=== PATIENT | male | born 1980 | race African-American/Black ===

== ENCOUNTER 2017-03-16 06:45 | Emergency (ER) | payer MEDICAID ==
[~2017-03-16] VITALS: Ht 180.3 cm; Wt 98.4 kg
[~2017-03-16 06:45] MED LIST: ALBU18; FLUT110A; HYDROCODON ACETAMINOPH; LEVO50TA7; PROMETHAZINE-DM SYRUP; WARF5TAB71; WARF7.5T PO
[2017-03-16 07:13] VITALS: BP 149/90
[2017-03-16] MEDS ORDERED: HYDROmorphone HCL 2 MG/ML VL IM ONE (07:30)
[2017-03-16] MEDS ORDERED: cefTRIAXone SOD 1,000 MG VL IM ONE (07:30)
[2017-03-16] MEDS ORDERED: ONDANSETRON HCL 4 MG/2 ML VIAL IM ONE (07:30)
[2017-03-16] MEDS ORDERED: ETHYL CHLORIDE SPRAY TOP ONE (08:45)
[2017-03-16] MEDS ORDERED: LIDOCAINE 1% HCL (LOCAL ANESTH.) INJ 20ML MDV IJ ONE (08:45)
== END 2017-03-16 08:55 | disposition home or self-care (01) ==
LOC: ER 06:45
DX: N49.2 Inflammatory disorders of scrotum (principal); F17.210 Nicotine dependence, cigarettes, uncomplicated; F12.10 Cannabis abuse, uncomplicated; I25.810 Atherosclerosis of coronary artery bypass graft(s) without angina pectoris; I50.9 Heart failure, unspecified; Z79.899 Other long term (current) drug therapy
CPT/HCPCS: 55100; 96372; 99284; J0696; J1170; J2405

== ENCOUNTER 2017-03-18 08:59 | Emergency (ER) | payer MEDICAID ==
[~2017-03-18] VITALS: Ht 180.3 cm; Wt 98.4 kg
[2017-03-18 09:33] VITALS: BP 152/92
== END 2017-03-18 10:11 | disposition home or self-care (01) ==
LOC: ER 09:05
DX: N49.2 Inflammatory disorders of scrotum (principal); F17.210 Nicotine dependence, cigarettes, uncomplicated; F12.10 Cannabis abuse, uncomplicated; I50.9 Heart failure, unspecified; I25.810 Atherosclerosis of coronary artery bypass graft(s) without angina pectoris

== ENCOUNTER 2019-10-28 11:14 | Emergency (ER) | payer MEDICAID ==
[~2019-10-28] VITALS: Ht 180.3 cm; Wt 101.2 kg
[~2019-10-28 11:14] MED LIST changes: +HYDR-4833 PO; -HYDROCODON ACETAMINOPH; -LEVO50TA7; +LEVO50TA7 PO; -PROMETHAZINE-DM SYRUP; -WARF5TAB71
[2019-10-28 11:34] VITALS: BP 149/95
[2019-10-28] MEDS ORDERED: methylPREDNISolone SOD SUCC 125 MG/2 ML VL IM ONE (12:15)
[2019-10-28] MEDS ORDERED: cefTRIAXone SOD 1,000 MG VL IM ONE (12:15)
== END 2019-10-28 12:49 | disposition home or self-care (01) ==
LOC: ER 11:14
DX: J03.90 Acute tonsillitis, unspecified (principal); I11.0 Hypertensive heart disease with heart failure; I50.9 Heart failure, unspecified; Z95.1 Presence of aortocoronary bypass graft; Z79.01 Long term (current) use of anticoagulants; Z79.899 Other long term (current) drug therapy
CPT/HCPCS: 96372; 99283; J0696; J2930

== ENCOUNTER 2021-06-20 22:07 | Emergency (ER) | payer MEDICAID ==
[~2021-06-20] VITALS: Ht 180.3 cm; Wt 104.3 kg
[~2021-06-20 22:07] MED LIST changes: -WARF7.5T PO; +WARF7.5T2 PO
[2021-06-21 01:47] VITALS: BP 124/79
== END 2021-06-21 05:02 | disposition home or self-care (01) ==
LOC: ER 22:10
DX: I83.221 Varicose veins of left lower extremity with both ulcer of thigh and inflammation (principal); L97.121 Non-pressure chronic ulcer of left thigh limited to breakdown of skin; I83.013 Varicose veins of right lower extremity with ulcer of ankle; L97.311 Non-pressure chronic ulcer of right ankle limited to breakdown of skin; I11.0 Hypertensive heart disease with heart failure; I50.9 Heart failure, unspecified; Z86.73 Personal history of transient ischemic attack (TIA), and cerebral infarction without residual deficits; Z95.1 Presence of aortocoronary bypass graft; Z79.01 Long term (current) use of anticoagulants; Z79.899 Other long term (current) drug therapy
CPT/HCPCS: 93005

== ENCOUNTER 2021-11-01 19:39 | Inpatient (IN) | payer MEDICAID ==
[~2021-11-01] VITALS: Ht 180.3 cm; Wt 112.0 kg
[2021-11-01] MEDS ORDERED: ACETAMINOPHEN 325 MG TAB PO ONE ×2 (20:00→22:30)
[2021-11-01] MEDS ORDERED: DexAMETHasone SOD PHOS 10MG/1ML VIAL INJ IV ONE (22:30)
[2021-11-01 22:32] LABS: Basophils # (auto) 0 10 ^3/uL (0-0.2); Eosinophils # (auto) 0 10 ^3/uL (0-0.8); Mean Corpuscular Hgb Conc. 32.3 g/dL (32.0-36.0); Neutrophils # (auto) 3.1 10 ^3/uL (1.6-8.6); Red Cell Distribution Width 17.1 % (11.8-14.3)
[2021-11-01 22:34] LABS: Basophils % (auto) 0.6 % (0.0-2.0); Lymphocytes # (auto) 0.4 10 ^3/uL (0.4-5.4); Lymphocytes % (auto) 10.5 % (10.0-50.0); Mean Corpuscular Hemoglobin 26.4 pg (28.0-32.0); Mean Corpuscular Volume 81.7 fL (80.0-100.0); Monocytes # (auto) 0.6 10 ^3/uL (0-1.3); Monocytes % (auto) 15.2 % (0.0-12.0); Neutrophils % (auto) 73.7 % (37.0-80.0); Red Blood Cells 8.03 10^6/uL (4.5-5.90); White Blood Cell 4.2 10^3/uL (4.4-10.8)
[2021-11-01 22:38] LABS: Hematocrit 65.6 % (41.0-53.0); Nucleated Red Blood Cells % 4.1 %
[2021-11-01 22:41] LABS: Hemoglobin 21.2 g/dL (13.5-17.5)
[2021-11-01 23:24] LABS: Alanine Aminotransferase 76 U/L (16-61); Albumin 3.1 g/dL (3.4-5.0); Alkaline Phosphatase 64 U/L (45-117); Anion Gap 9 (5-15); Aspartate Aminotransferase 151 U/L (15-37); BUN/Creatinine Ratio 16.8; Bilirubin, Total 1.6 mg/dL (0.2-1.0); Blood Urea Nitrogen 33 mg/dL (7-18); Calcium 8.3 mg/dL (8.5-10.1); Carbon Dioxide 21 mmol/L (21-32); Chloride 105 mmol/L (98-107); GFR African American 48 mL/min; GFR Non-African American 40 mL/min; Glucose 119 mg/dL (74-106); Magnesium 2.3 mg/dL (1.6-2.6); Potassium 4.7 mmol/L (3.5-5.1); Sodium 135 mmol/L (136-145); Total Protein 8.6 g/dL (6.4-8.2)
[2021-11-02] MEDS ORDERED: VANCOMYCIN 1,500 MG in D5W 5% 250 ML IV STA (02:02)
[2021-11-02] MEDS ORDERED: PIPERACILLIN-TAZO 4.5GM 100 ML IV ONE (02:15)
[2021-11-02] MEDS ORDERED: SODIUM CHLORIDE 0.9% 3,250 ML IV ONE (04:30)
[2021-11-02] MEDS ORDERED: SODIUM CHLORIDE 0.9% 1,000 ML IV ONE ×3 (04:30→06:45)
[2021-11-02] MEDS ORDERED: ACETAMINOPHEN 325 MG TAB PO PRN (06:30)
[2021-11-02] MEDS ORDERED: DOCUSATE SOD 100 MG CAP PO PRN (06:30)
[2021-11-02] MEDS ORDERED: MORPHINE SULFATE INJECTION 2 MG/ML SYRG IV PRN (06:30)
[2021-11-02] MEDS ORDERED: VANCOMYCIN PER PHARMACY 0 MG IV SCH (06:30)
[2021-11-02] MEDS ORDERED: ALBUMIN 25% 100 ML IV ONE (06:30)
[2021-11-02] MEDS ORDERED: ONDANSETRON HCL 4 MG/2 ML VIAL IV PRN (06:30)
[2021-11-02] MEDS ORDERED: NITROGLYCERIN 0.4 MG SL TAB SL PRN (06:30)
[2021-11-02] MEDS ORDERED: NOREPINEPHRINE 8 MG/250ML KIT 250 ML IV SCH (08:30)
[2021-11-02 08:43] LABS: Basophils # (auto) 0 10 ^3/uL (0-0.2); Eosinophils # (auto) 0 10 ^3/uL (0-0.8); Lymphocytes # (auto) 0.4 10 ^3/uL (0.4-5.4); Neutrophils # (auto) 2.4 10 ^3/uL (1.6-8.6); White Blood Cell 3.1 10^3/uL (4.4-10.8)
[2021-11-02 08:45] LABS: Basophils % (auto) 0.7 % (0.0-2.0); Hemoglobin 19.7 g/dL (13.5-17.5); Lymphocytes % (auto) 12.5 % (10.0-50.0); Mean Corpuscular Hemoglobin 26.1 pg (28.0-32.0); Mean Corpuscular Hgb Conc. 31.6 g/dL (32.0-36.0); Mean Corpuscular Volume 82.5 fL (80.0-100.0); Monocytes # (auto) 0.3 10 ^3/uL (0-1.3); Monocytes % (auto) 8.2 % (0.0-12.0); Neutrophils % (auto) 78.6 % (37.0-80.0); Nucleated Red Blood Cells % 1.7 %; Red Blood Cells 7.55 10^6/uL (4.5-5.90)
[2021-11-02 08:50] LABS: Albumin 2.4 g/dL (3.4-5.0); Calcium 7.2 mg/dL (8.5-10.1); Potassium 4.8 mmol/L (3.5-5.1)
[2021-11-02 08:53] LABS: BUN/Creatinine Ratio 19.4; Bilirubin, Total 1.9 mg/dL (0.2-1.0); Total Protein 6.9 g/dL (6.4-8.2)
[2021-11-02] MEDS: LEVOTHYROXINE SODIUM 50 MCG TAB PO SCH (09:01)
[2021-11-02 09:06] LABS: Hematocrit 62.4 % (41.0-53.0)
[2021-11-02] MEDS: SODIUM CHLORIDE 0.9% 1,000 ML IV SCH (09:19)
[2021-11-02] MEDS: FAMOTIDINE (10MG/ML) 2ML VL IV SCH ×2 (10:07→22:03)
[2021-11-02 11:33] LABS: Alcohol, Urine < 3.0 mg/dL (0-10); Amphetamine Screen, Urine NEGATIVE (NEGATIVE); Barbiturate Scree,Urine NEGATIVE (NEGATIVE); Benzodiazephine Screen, Urine NEGATIVE (NEGATIVE); Cannabinoid Screen, Urine POSITIVE (NEGATIVE); Cocaine Screen, Urine NEGATIVE (NEGATIVE); Opiate Scree,Urine NEGATIVE (NEGATIVE); Phencyclidine Screen, Urine NEGATIVE (NEGATIVE)
[2021-11-02 11:57] LABS: Urine Bacteria FEW /hpf (None Seen); Urine Blood Negative /uL (Negative); Urine Hyaline Cast MOD /lpf (0 - 2); Urine Mucus FEW (None Seen); Urine Specific Gravity 1.023 (1.001-1.035); Urine WBC 3 /hpf (0 - 3)
[2021-11-02] MEDS: PIPERACILLIN-TAZOB 3.375GM 100 ML IV SCH ×2 (14:00→23:06)
[2021-11-02] MEDS ORDERED: PIPERACILLIN-TAZOB 2.25GM 50 ML IV SCH (14:00)
[2021-11-02] MEDS ORDERED: VANCOMYCIN 1GM/250ML 250 ML IV ONE (17:30)
[2021-11-02 19:26] LABS: INR 1.63 (0.9-1.15); Partial Thromboplastin Time 36.8 sec (23.6-33.0)
[2021-11-02] MEDS ORDERED: WARFARIN SODIUM 2.5 MG TAB PO ONE (20:00)
[2021-11-02] MEDS: BUDESONIDE (INHALATION) 180 MCG IH IN SCH (22:00)
[2021-11-02 22:23] VITALS: BP 94/67
[2021-11-02] MEDS: HYDROcodone-ACET 5/325MG TAB PO PRN (22:23)
[2021-11-03] MEDS: SODIUM CHLORIDE 0.9% 1,000 ML IV SCH (03:32)
[2021-11-03 04:53] VITALS: BP 111/71
[2021-11-03] MEDS: PIPERACILLIN-TAZOB 3.375GM 100 ML IV SCH (05:43)
[2021-11-03] MEDS: LEVOTHYROXINE SODIUM 50 MCG TAB PO SCH (06:34)
[2021-11-03 08:15] LABS: Potassium 5.1 mmol/L (3.5-5.1)
[2021-11-03 08:21] LABS: Basophils # (auto) 0 10 ^3/uL (0-0.2); Eosinophils # (auto) 0 10 ^3/uL (0-0.8); Hemoglobin 19.6 g/dL (13.5-17.5); Monocytes # (auto) 0.4 10 ^3/uL (0-1.3); White Blood Cell 3.6 10^3/uL (4.4-10.8)
[2021-11-03 08:23] LABS: Basophils % (auto) 0.5 % (0.0-2.0); Hematocrit 62.1 % (41.0-53.0); Lymphocytes # (auto) 0.6 10 ^3/uL (0.4-5.4); Lymphocytes % (auto) 17.1 % (10.0-50.0); Mean Corpuscular Hemoglobin 26.2 pg (28.0-32.0); Mean Corpuscular Hgb Conc. 31.5 g/dL (32.0-36.0); Mean Corpuscular Volume 83.2 fL (80.0-100.0); Monocytes % (auto) 10.8 % (0.0-12.0); Neutrophils # (auto) 2.5 10 ^3/uL (1.6-8.6); Neutrophils % (auto) 71.6 % (37.0-80.0); Nucleated Red Blood Cells % 1.5 %; Red Blood Cells 7.47 10^6/uL (4.5-5.90); Red Cell Distribution Width 17.5 % (11.8-14.3)
[2021-11-03 08:31] LABS: Albumin 2.8 g/dL (3.4-5.0); BUN/Creatinine Ratio 20.7; Bilirubin, Total 1.4 mg/dL (0.2-1.0); Calcium 7.7 mg/dL (8.5-10.1); Total Protein 7.1 g/dL (6.4-8.2)
[2021-11-03 08:49] LABS: INR 1.51 (0.9-1.15); Partial Thromboplastin Time 38.3 sec (23.6-33.0)
[2021-11-03 09:00] VITALS: BP 89/68
[2021-11-03] MEDS: BUDESONIDE (INHALATION) 180 MCG IH IN SCH ×2 (09:42→22:00)
[2021-11-03] MEDS: CHOLECALCIFEROL (VITD3) 2,000 UNIT CAP/TAB PO SCH (10:00)
[2021-11-03] MEDS: ZINC SULFATE 220mg CAP or TAB PO SCH (11:13)
[2021-11-03] MEDS: FAMOTIDINE (10MG/ML) 2ML VL IV SCH (11:13)
[2021-11-03] MEDS: ASCORBIC ACID 1,000 MG TAB PO SCH (11:14)
[2021-11-03] MEDS ORDERED: REMDESIVIR PER PHARMACY 0 ML IV SCH (12:15)
[2021-11-03] MEDS ORDERED: DexAMETHasone SOD PHOS 4 MG/1ML SDV INJ IV ONE (12:15)
[2021-11-03] MEDS: DOXYCYCLINE 100MG/250ML 250 ML IV SCH ×2 (12:23→22:43)
[2021-11-03 13:00] VITALS: BP 90/64
[2021-11-03] MEDS ORDERED: MEROPENEM 1GM IVPB 100 ML IV SCH (14:00)
[2021-11-03] MEDS ORDERED: REMDESIVIR 200 MG in NS 210ml LOADING DOSE ADULT IV ONE (15:00)
[2021-11-03 17:00] VITALS: BP 95/42
[2021-11-03] MEDS ORDERED: WARFARIN SODIUM 10 MG TAB PO ONE (17:00)
[2021-11-03 22:00] VITALS: BP 96/67
[2021-11-03] MEDS: ALBUTEROL SULF HFA 90MCG INH 200DOSE IN PRN (23:25)
[2021-11-04] MEDS: ACETAMINOPHEN 500 MG TAB PO PRN ×2 (01:07→16:50)
[2021-11-04 05:00] VITALS: BP 105/41
[2021-11-04] MEDS: LEVOTHYROXINE SODIUM 50 MCG TAB PO SCH (06:42)
[2021-11-04 07:21] LABS: Basophils # (auto) 0 10 ^3/uL (0-0.2); Basophils % (auto) 0.2 % (0.0-2.0); Eosinophils # (auto) 0 10 ^3/uL (0-0.8); Mean Corpuscular Volume 82.4 fL (80.0-100.0); White Blood Cell 4.2 10^3/uL (4.4-10.8)
[2021-11-04 07:23] LABS: Lymphocytes # (auto) 0.5 10 ^3/uL (0.4-5.4); Lymphocytes % (auto) 12.9 % (10.0-50.0); Mean Corpuscular Hemoglobin 26.4 pg (28.0-32.0); Mean Corpuscular Hgb Conc. 32.1 g/dL (32.0-36.0); Monocytes # (auto) 0.6 10 ^3/uL (0-1.3); Monocytes % (auto) 13.5 % (0.0-12.0); Neutrophils # (auto) 3.1 10 ^3/uL (1.6-8.6); Neutrophils % (auto) 73.4 % (37.0-80.0); Nucleated Red Blood Cells % 0.7 %; Red Blood Cells 7.56 10^6/uL (4.5-5.90); Red Cell Distribution Width 17.4 % (11.8-14.3)
[2021-11-04 07:39] LABS: Hematocrit 62.3 % (41.0-53.0)
[2021-11-04 08:12] LABS: BUN/Creatinine Ratio 16.5; Calcium 8.2 mg/dL (8.5-10.1); Potassium 4.6 mmol/L (3.5-5.1)
[2021-11-04 08:13] LABS: Albumin 2.7 g/dL (3.4-5.0); Bilirubin, Total 1.8 mg/dL (0.2-1.0); Total Protein 7.4 g/dL (6.4-8.2)
[2021-11-04 08:15] LABS: INR 4.52 (0.9-1.15)
[2021-11-04] MEDS: ASCORBIC ACID 1,000 MG TAB PO SCH (08:33)
[2021-11-04] MEDS: DexAMETHasone SOD PHOS 10MG/1ML VIAL INJ IV SCH (08:33)
[2021-11-04] MEDS: ZINC SULFATE 220mg CAP or TAB PO SCH (08:33)
[2021-11-04] MEDS: DOXYCYCLINE 100MG/250ML 250 ML IV SCH ×2 (08:34→22:30)
[2021-11-04] MEDS: CHOLECALCIFEROL (VITD3) 2,000 UNIT CAP/TAB PO SCH (08:34)
[2021-11-04 09:00] VITALS: BP 94/67
[2021-11-04 13:00] VITALS: BP 90/60
[2021-11-04] MEDS ORDERED: REMDESIVIR 200 MG in NS 210ml LOADING DOSE ADULT IV ONE (15:00)
[2021-11-04 17:00] VITALS: BP 102/35
[2021-11-04 22:00] VITALS: BP 94/65
[2021-11-04] MEDS: BUDESONIDE (INHALATION) 180 MCG IH IN SCH (23:10)
[2021-11-04] MEDS: ALBUTEROL SULF HFA 90MCG INH 200DOSE IN PRN (23:37)
[2021-11-05 05:00] VITALS: BP 99/70
[2021-11-05] MEDS: LEVOTHYROXINE SODIUM 50 MCG TAB PO SCH (06:21)
[2021-11-05] MEDS: BUDESONIDE (INHALATION) 180 MCG IH IN SCH ×2 (07:10→20:06)
[2021-11-05 08:12] LABS: INR 4.52 (0.9-1.15)
[2021-11-05] MEDS: ALBUTEROL SULF HFA 90MCG INH 200DOSE IN PRN ×2 (08:44→20:06)
[2021-11-05 08:57] VITALS: BP 108/62
[2021-11-05] MEDS: ZINC SULFATE 220mg CAP or TAB PO SCH (09:04)
[2021-11-05] MEDS: ASCORBIC ACID 1,000 MG TAB PO SCH (09:04)
[2021-11-05] MEDS: CHOLECALCIFEROL (VITD3) 2,000 UNIT CAP/TAB PO SCH (09:04)
[2021-11-05] MEDS: DexAMETHasone SOD PHOS 10MG/1ML VIAL INJ IV SCH (09:04)
[2021-11-05] MEDS: DOXYCYCLINE 100MG/250ML 250 ML IV SCH (09:04)
[2021-11-05] MEDS: ACETAMINOPHEN 500 MG TAB PO PRN (09:21)
[2021-11-05 09:25] LABS: Potassium 4.6 mmol/L (3.5-5.1)
[2021-11-05 09:26] LABS: Albumin 2.8 g/dL (3.4-5.0); BUN/Creatinine Ratio 17.8; Bilirubin, Total 2.4 mg/dL (0.2-1.0); Calcium 8.7 mg/dL (8.5-10.1); Total Protein 7.8 g/dL (6.4-8.2)
[2021-11-05 12:58] VITALS: BP 84/64
[2021-11-05] MEDS: REMDESIVIR 100mg 100 MG in SODIUM CHL 0.9% 230 ML IV SCH (14:26)
[2021-11-05 17:00] VITALS: BP 93/55
[2021-11-05 22:00] VITALS: BP 90/50
[2021-11-06 05:00] VITALS: BP 99/60
[2021-11-06] MEDS: ALBUTEROL SULF HFA 90MCG INH 200DOSE IN PRN (06:02)
[2021-11-06] MEDS: BUDESONIDE (INHALATION) 180 MCG IH IN SCH (06:02)
[2021-11-06] MEDS: LEVOTHYROXINE SODIUM 50 MCG TAB PO SCH (06:37)
[2021-11-06 08:23] LABS: INR 5.09 (0.9-1.15)
[2021-11-06 09:00] VITALS: BP 130/94
[2021-11-06] MEDS: DexAMETHasone SOD PHOS 10MG/1ML VIAL INJ IV SCH (09:16)
[2021-11-06] MEDS: cefTRIAXone 1GM/50ML D5W 50 ML IV SCH (09:16)
[2021-11-06] MEDS: ASCORBIC ACID 1,000 MG TAB PO SCH (09:17)
[2021-11-06] MEDS: ZINC SULFATE 220mg CAP or TAB PO SCH (09:17)
[2021-11-06] MEDS: CHOLECALCIFEROL (VITD3) 2,000 UNIT CAP/TAB PO SCH (09:17)
[2021-11-06 13:00] VITALS: BP 112/73
[2021-11-06] MEDS: HYDROcodone-ACET 5/325MG TAB PO PRN (14:25)
[2021-11-06] MEDS: REMDESIVIR 100mg 100 MG in SODIUM CHL 0.9% 230 ML IV SCH (15:00)
[2021-11-06 17:01] VITALS: BP 96/73
[2021-11-06 17:15] LABS: Basophils # (auto) 0 10 ^3/uL (0-0.2); Basophils % (auto) 0.3 % (0.0-2.0); Eosinophils # (auto) 0 10 ^3/uL (0-0.8); Eosinophils % (auto) 0.1 % (0.0-7.0); Hemoglobin 19.6 g/dL (13.5-17.5); Lymphocytes # (auto) 0.2 10 ^3/uL (0.4-5.4); Lymphocytes % (auto) 3.7 % (10.0-50.0); Mean Corpuscular Hemoglobin 26.7 pg (28.0-32.0); Mean Corpuscular Hgb Conc. 32.6 g/dL (32.0-36.0); Mean Corpuscular Volume 81.8 fL (80.0-100.0); Monocytes # (auto) 0.4 10 ^3/uL (0-1.3); Monocytes % (auto) 7.8 % (0.0-12.0); Neutrophils % (auto) 88.1 % (37.0-80.0); Nucleated Red Blood Cells % 0.4 %; Red Blood Cells 7.33 10^6/uL (4.5-5.90); Red Cell Distribution Width 17.3 % (11.8-14.3); White Blood Cell 5.7 10^3/uL (4.4-10.8)
[2021-11-06 17:27] LABS: Hematocrit 59.9 % (41.0-53.0)
[2021-11-06 22:00] VITALS: BP 88/64
[2021-11-07 01:02] LABS: Albumin 2.5 g/dL (3.4-5.0); BUN/Creatinine Ratio 16.7; Calcium 8.8 mg/dL (8.5-10.1); Potassium 4.6 mmol/L (3.5-5.1)
[2021-11-07 01:23] LABS: Total Protein 7.7 g/dL (6.4-8.2)
[2021-11-07 04:59] VITALS: BP 94/67
[2021-11-07] MEDS: LEVOTHYROXINE SODIUM 50 MCG TAB PO SCH (06:21)
[2021-11-07 06:40] LABS: Calcium 8.7 mg/dL (8.5-10.1); Potassium 4.7 mmol/L (3.5-5.1)
[2021-11-07 06:41] LABS: INR 2.78 (0.9-1.15)
[2021-11-07 06:43] LABS: Albumin 2.4 g/dL (3.4-5.0); BUN/Creatinine Ratio 21.8
[2021-11-07 06:46] LABS: Bilirubin, Total 2.5 mg/dL (0.2-1.0); Total Protein 6.7 g/dL (6.4-8.2)
[2021-11-07 09:00] VITALS: BP 94/58
[2021-11-07] MEDS: cefTRIAXone 1GM/50ML D5W 50 ML IV SCH (09:34)
[2021-11-07] MEDS: CHOLECALCIFEROL (VITD3) 2,000 UNIT CAP/TAB PO SCH (09:35)
[2021-11-07] MEDS: ZINC SULFATE 220mg CAP or TAB PO SCH (09:35)
[2021-11-07] MEDS: ASCORBIC ACID 1,000 MG TAB PO SCH (09:35)
[2021-11-07] MEDS: DexAMETHasone SOD PHOS 10MG/1ML VIAL INJ IV SCH (09:35)
[2021-11-07] MEDS: BUDESONIDE (INHALATION) 180 MCG IH IN SCH (10:00)
[2021-11-07] MEDS: ALBUTEROL SULF HFA 90MCG INH 200DOSE IN PRN (11:07)
[2021-11-07 13:00] VITALS: BP 116/59
[2021-11-07] MEDS ORDERED: WARFARIN SODIUM 2.5 MG TAB PO ONE (17:00)
== END 2021-11-07 17:20 | disposition home or self-care (01) | DRG 720 ==
LOC: ER 19:41 → TELE 11-02 06:24 → TELE-EAST 11-02 20:24
PROVIDERS: ADMIT Nurse Practitioner Family; ATTEND Internal Medicine
PROC: XW033E5 Introduction of Remdesivir Anti-infective into Peripheral Vein, Percutaneous Approach, New Technology Group 5 (ICD-10-PCS; principal; 2021-11-03)
DX: A41.89 Other specified sepsis (principal); J96.21 Acute and chronic respiratory failure with hypoxia; J12.82 Pneumonia due to coronavirus disease 2019; E46 Unspecified protein-calorie malnutrition; U07.1 COVID-19; D69.6 Thrombocytopenia, unspecified; D89.839 Cytokine release syndrome, grade unspecified; I21.A1 Myocardial infarction type 2; E83.51 Hypocalcemia; D75.1 Secondary polycythemia; K74.60 Unspecified cirrhosis of liver; I50.9 Heart failure, unspecified; I11.0 Hypertensive heart disease with heart failure; E03.9 Hypothyroidism, unspecified; J98.11 Atelectasis; E66.9 Obesity, unspecified; D69.59 Other secondary thrombocytopenia; Z99.81 Dependence on supplemental oxygen; Z68.34 Body mass index [BMI] 34.0-34.9, adult; Z91.19 Patient's noncompliance with other medical treatment and regimen; Z95.2 Presence of prosthetic heart valve
CPT/HCPCS: 36415; 71045; 71250; 76700; 80053; 80202; 80307; 80320; 81001; 82728; 83036; 83605; 83615; 83735; 83880; 84443; 84484; 85025; 85379; 85610; 85730; 87040; 87426; 93005; 93306; 94640; 96361; 96365; 96375; 99291; G0378; J0696; J1100; J2185; J2543; J3490; J7060; P9047

== ENCOUNTER 2023-04-06 19:18 | Inpatient (IN) | payer MEDICAID ==
[~2023-04-06] VITALS: Ht 180.3 cm; Wt 106.1 kg
[2023-04-06 20:38] LABS: INR 1.28 (0.9-1.15); Partial Thromboplastin Time 30.2 sec (24.6-33.4)
[2023-04-06 20:42] LABS: Albumin 3.8 g/dL (3.4-5.0); Calcium 8.8 mg/dL (8.5-10.1); Magnesium 2.2 mg/dL (1.6-2.6); Potassium 4.4 mmol/L (3.5-5.1)
[2023-04-06 20:47] LABS: BUN/Creatinine Ratio 15.6 (10.0-20.0); Bilirubin, Total 3.6 mg/dL (0.2-1.0); Total Protein 8.3 g/dL (6.4-8.2)
[2023-04-06] MEDS ORDERED: ASPirin 325 MG TAB PO ONE (21:00)
[2023-04-06 21:53] LABS: Hemoglobin 15.5 g/dL (13.5-17.5); Mean Corpuscular Volume 67.7 fL (80.0-100.0); White Blood Cell 4.1 10^3/uL (4.4-10.8)
[2023-04-06 21:55] LABS: Hematocrit 53.3 % (41.0-53.0); Mean Corpuscular Hemoglobin 19.7 pg (28.0-32.0); Mean Corpuscular Hgb Conc. 29.1 g/dL (32.0-36.0); Red Blood Cells 7.88 10^6/uL (4.5-5.90)
[2023-04-06 22:04] LABS: Red Cell Distribution Width 25.2 % (11.8-14.3)
[2023-04-06 22:07] LABS: Basophils % (manual) 0 (0.0-2.0); Blast Cells 0; Metamyelocytes % 0; Myelocytes % 0; Promyelocytes % 0; Reactive Lymphocytes 0
[2023-04-06 22:51] LABS: Band Neutrophils % (manual) 3; Eosinophils % (manual) 1 (0-7); Lymphocytes % (manual) 36 (10.0-50.0); Monocytes % (manual) 7 (0-12)
[2023-04-07] MEDS ORDERED: MORPHINE SULFATE INJ 2 MG/ml SYRG IV PRN (02:30)
[2023-04-07] MEDS ORDERED: ALBUTEROL SULF 2.5 MG/0.5ML(0.5%) NEB SOLN NEB PRN (02:30)
[2023-04-07] MEDS ORDERED: NITROGLYCERIN 0.4 MG SL TAB SL PRN (02:30)
[2023-04-07] MEDS ORDERED: ONDANSETRON HCL 4 MG/2 ML VIAL IV PRN (02:30)
[2023-04-07] MEDS: HYDROcodone-ACET 5/325MG TAB PO PRN ×3 (03:18→14:15)
[2023-04-07] MEDS: LEVOTHYROXINE SODIUM 50 MCG TAB PO SCH (06:26)
[2023-04-07 06:46] VITALS: BP 109/73
[2023-04-07] MEDS: PANTOPRAZOLE 40 MG TAB PO SCH (10:12)
[2023-04-07] MEDS: ASPirin 81 mg TAB PO SCH (10:12)
[2023-04-07] MEDS ORDERED: WARFARIN SODIUM 2.5 MG TAB PO ONE (17:00)
[2023-04-07 17:40] VITALS: BP 110/41
[2023-04-07 18:09] VITALS: BP_SYST 110; BP_DIAS 41; BP_DIAS 78
[2023-04-07 22:00] VITALS: BP 128/83
[2023-04-08] MEDS: ACETAMINOPHEN 325 MG TAB PO PRN ×2 (04:47→12:55)
[2023-04-08 05:00] VITALS: BP 121/85
[2023-04-08 05:52] LABS: Eosinophils # (auto) 0.1 10 ^3/uL (0-0.8); Mean Corpuscular Hgb Conc. 29.8 g/dL (32.0-36.0)
[2023-04-08 05:59] LABS: Basophils # (auto) 0.1 10 ^3/uL (0-0.2); Basophils % (auto) 2.1 % (0.0-2.0); Eosinophils % (auto) 2.3 % (0.0-7.0); Hematocrit 52.6 % (41.0-53.0); Hemoglobin 15.7 g/dL (13.5-17.5); Lymphocytes % (auto) 29.1 % (10.0-50.0); Mean Corpuscular Hemoglobin 20.1 pg (28.0-32.0); Mean Corpuscular Volume 67.4 fL (80.0-100.0); Monocytes # (auto) 0.5 10 ^3/uL (0-1.3); Monocytes % (auto) 13.6 % (0.0-12.0); Neutrophils # (auto) 1.8 10 ^3/uL (1.6-8.6); Neutrophils % (auto) 52.9 % (37.0-80.0); Nucleated Red Blood Cells % 0.7 %; White Blood Cell 3.3 10^3/uL (4.4-10.8)
[2023-04-08 06:02] LABS: INR 1.34 (0.9-1.15); Partial Thromboplastin Time 33.9 sec (24.6-33.4)
[2023-04-08 06:08] LABS: Red Cell Distribution Width 24.5 % (11.8-14.3)
[2023-04-08 06:16] LABS: Potassium 4.3 mmol/L (3.5-5.1)
[2023-04-08 06:24] LABS: Albumin 3.1 g/dL (3.4-5.0); BUN/Creatinine Ratio 13.4 (10.0-20.0); Bilirubin, Total 3.4 mg/dL (0.2-1.0); Calcium 8.5 mg/dL (8.5-10.1); Total Protein 7.9 g/dL (6.4-8.2)
[2023-04-08] MEDS: LEVOTHYROXINE SODIUM 50 MCG TAB PO SCH (06:32)
[2023-04-08 09:00] VITALS: BP 111/72
[2023-04-08] MEDS ORDERED: FUROSEMIDE 40 MG/4 ML VIAL IV ONE (10:45)
[2023-04-08] MEDS ORDERED: IOHEXOL 350 MG/ML 100ML IJ ONE (10:53)
[2023-04-08] MEDS: cefTRIAXone 1GM/50ML D5W 50 ML IV SCH (12:37)
[2023-04-08] MEDS: ASPirin 81 mg TAB PO SCH (12:40)
[2023-04-08] MEDS: PANTOPRAZOLE 40 MG TAB PO SCH (12:40)
[2023-04-08 13:00] VITALS: BP 116/76
[2023-04-08] MEDS: AZITHROMYCIN 500MG/ 250ML 250 ML IV SCH (13:40)
[2023-04-08] MEDS: HYDROcodone-ACET 5/325MG TAB PO PRN ×2 (15:00→21:35)
[2023-04-08 16:43] VITALS: BP 116/69
[2023-04-08] MEDS ORDERED: WARFARIN SODIUM 5 MG TAB PO ONE (17:00)
[2023-04-08] MEDS: guaiFENesin 200 MG/10 ML UD PO PRN (19:02)
[2023-04-08 22:00] VITALS: BP 115/75
[2023-04-09] MEDS: HYDROcodone-ACET 5/325MG TAB PO PRN ×3 (04:30→22:38)
[2023-04-09 05:00] VITALS: BP 119/70
[2023-04-09] MEDS: LEVOTHYROXINE SODIUM 50 MCG TAB PO SCH (06:05)
[2023-04-09 06:15] LABS: INR 1.43 (0.9-1.15); Partial Thromboplastin Time 35.1 SEC (24.5-34.5)
[2023-04-09 09:00] VITALS: BP 104/64
[2023-04-09] MEDS: cefTRIAXone 1GM/50ML D5W 50 ML IV SCH (09:18)
[2023-04-09] MEDS: PANTOPRAZOLE 40 MG TAB PO SCH (09:19)
[2023-04-09] MEDS: ASPirin 81 mg TAB PO SCH (09:19)
[2023-04-09] MEDS: AZITHROMYCIN 500MG/ 250ML 250 ML IV SCH (09:51)
[2023-04-09 13:00] VITALS: BP 121/78
[2023-04-09 17:00] VITALS: BP 109/64
[2023-04-09] MEDS ORDERED: WARFARIN SODIUM 5 MG TAB PO ONE (18:30)
[2023-04-09 22:00] VITALS: BP 117/78
[2023-04-09] MEDS: guaiFENesin 200 MG/10 ML UD PO PRN (22:38)
[2023-04-10 04:40] VITALS: BP 114/74
[2023-04-10] MEDS: LEVOTHYROXINE SODIUM 50 MCG TAB PO SCH (06:02)
[2023-04-10 06:22] LABS: INR 1.37 (0.9-1.15); Partial Thromboplastin Time 33.9 SEC (24.5-34.5)
[2023-04-10 09:00] VITALS: BP 109/66
[2023-04-10 09:27] VITALS: BP 114/74
[2023-04-10] MEDS: AZITHROMYCIN 250 MG TAB PO SCH (09:48)
[2023-04-10] MEDS: ASPirin 81 mg TAB PO SCH (09:49)
[2023-04-10] MEDS: cefTRIAXone 1GM/50ML D5W 50 ML IV SCH (09:49)
[2023-04-10] MEDS: PANTOPRAZOLE 40 MG TAB PO SCH (09:49)
[2023-04-10 13:00] VITALS: BP 132/85
[2023-04-10] MEDS: HYDROcodone-ACET 5/325MG TAB PO PRN ×2 (15:50→20:41)
[2023-04-10 17:00] VITALS: BP 110/74
[2023-04-10] MEDS ORDERED: WARFARIN SODIUM 5 MG TAB PO ONE (17:00)
[2023-04-10 22:00] VITALS: BP 124/73
[2023-04-11] MEDS: ACETAMINOPHEN 325 MG TAB PO PRN (03:48)
[2023-04-11 05:00] VITALS: BP 118/79
[2023-04-11 06:04] LABS: INR 1.32 (0.9-1.15); Partial Thromboplastin Time 33.6 SEC (24.5-34.5)
[2023-04-11] MEDS: LEVOTHYROXINE SODIUM 50 MCG TAB PO SCH (06:16)
[2023-04-11 09:00] VITALS: BP 117/74
[2023-04-11] MEDS: AZITHROMYCIN 250 MG TAB PO SCH (09:56)
[2023-04-11] MEDS: ASPirin 81 mg TAB PO SCH (09:56)
[2023-04-11] MEDS: cefTRIAXone 1GM/50ML D5W 50 ML IV SCH (09:56)
[2023-04-11] MEDS: PANTOPRAZOLE 40 MG TAB PO SCH (09:57)
[2023-04-11] MEDS: guaiFENesin 200 MG/10 ML UD PO PRN (10:09)
[2023-04-11] MEDS: HYDROcodone-ACET 5/325MG TAB PO PRN ×2 (10:49→23:02)
[2023-04-11 13:00] VITALS: BP 122/77
[2023-04-11 17:00] VITALS: BP 126/82
[2023-04-11] MEDS ORDERED: WARFARIN SODIUM 5 MG TAB PO ONE (17:00)
[2023-04-11 22:00] VITALS: BP 123/80
[2023-04-12 05:27] VITALS: BP 7/108
[2023-04-12] MEDS: LEVOTHYROXINE SODIUM 50 MCG TAB PO SCH (06:03)
[2023-04-12 06:46] LABS: INR 1.33 (0.9-1.15)
[2023-04-12 09:00] VITALS: BP 120/74
[2023-04-12] MEDS: AZITHROMYCIN 250 MG TAB PO SCH (09:29)
[2023-04-12] MEDS: cefTRIAXone 1GM/50ML D5W 50 ML IV SCH (09:29)
[2023-04-12] MEDS: PANTOPRAZOLE 40 MG TAB PO SCH (09:29)
[2023-04-12] MEDS: ASPirin 81 mg TAB PO SCH (09:29)
[2023-04-12 13:00] VITALS: BP 101/67
[2023-04-12 17:00] VITALS: BP 101/71
[2023-04-12] MEDS ORDERED: WARFARIN SODIUM 5 MG TAB PO ONE (18:15)
[2023-04-12 22:00] VITALS: BP 110/71
[2023-04-12] MEDS: HYDROcodone-ACET 5/325MG TAB PO PRN (23:59)
[2023-04-13 05:00] VITALS: BP 104/62
[2023-04-13 05:55] LABS: Basophils # (auto) 0.1 10 ^3/uL (0-0.2); Eosinophils # (auto) 0.1 10 ^3/uL (0-0.8)
[2023-04-13 05:57] LABS: Basophils % (auto) 1.9 % (0.0-2.0); Eosinophils % (auto) 2.9 % (0.0-7.0); Hematocrit 54.4 % (41.0-53.0); Lymphocytes # (auto) 1.4 10 ^3/uL (0.4-5.4); Lymphocytes % (auto) 39.7 % (10.0-50.0); Mean Corpuscular Hemoglobin 19.8 pg (28.0-32.0); Mean Corpuscular Hgb Conc. 29.4 g/dL (32.0-36.0); Mean Corpuscular Volume 67.3 fL (80.0-100.0); Monocytes # (auto) 0.5 10 ^3/uL (0-1.3); Monocytes % (auto) 14.1 % (0.0-12.0); Neutrophils # (auto) 1.5 10 ^3/uL (1.6-8.6); Neutrophils % (auto) 41.4 % (37.0-80.0); Nucleated Red Blood Cells % 0.2 %; Red Blood Cells 8.07 10^6/uL (4.5-5.90); White Blood Cell 3.5 10^3/uL (4.4-10.8)
[2023-04-13 06:01] LABS: Red Cell Distribution Width 24.2 % (11.8-14.3)
[2023-04-13 06:06] LABS: INR 1.16 (0.9-1.15); Partial Thromboplastin Time 27.6 SEC (24.5-34.5)
[2023-04-13] MEDS: LEVOTHYROXINE SODIUM 50 MCG TAB PO SCH (06:17)
[2023-04-13 09:00] VITALS: BP 103/65
[2023-04-13] MEDS: ASPirin 81 mg TAB PO SCH (09:45)
[2023-04-13] MEDS: cefTRIAXone 1GM/50ML D5W 50 ML IV SCH (09:45)
[2023-04-13] MEDS: AZITHROMYCIN 250 MG TAB PO SCH (09:45)
[2023-04-13] MEDS: PANTOPRAZOLE 40 MG TAB PO SCH (09:45)
[2023-04-13 13:00] VITALS: BP 134/77
[2023-04-13 17:00] VITALS: BP 116/79
[2023-04-13] MEDS ORDERED: WARFARIN SODIUM 5 MG TAB PO ONE (17:00)
[2023-04-13] MEDS: HYDROcodone-ACET 5/325MG TAB PO PRN (21:13)
[2023-04-13 22:00] VITALS: BP 118/73
[2023-04-14 05:00] VITALS: BP 107/67
[2023-04-14] MEDS: LEVOTHYROXINE SODIUM 50 MCG TAB PO SCH (05:46)
[2023-04-14 05:59] LABS: INR 1.32 (0.9-1.15); Partial Thromboplastin Time 34.7 SEC (24.5-34.5)
[2023-04-14 09:00] VITALS: BP 114/65
[2023-04-14] MEDS: ASPirin 81 mg TAB PO SCH (09:22)
[2023-04-14] MEDS: PANTOPRAZOLE 40 MG TAB PO SCH (09:22)
[2023-04-14] MEDS: cefTRIAXone 1GM/50ML D5W 50 ML IV SCH (09:22)
[2023-04-14] MEDS: AZITHROMYCIN 250 MG TAB PO SCH (09:22)
[2023-04-14] MEDS: HYDROcodone-ACET 5/325MG TAB PO PRN (12:19)
[2023-04-14 13:00] VITALS: BP 99/70
[2023-04-14] MEDS ORDERED: FUROSEMIDE 20 MG/2 ML VIAL IV ONE (14:30)
[2023-04-14 17:00] VITALS: BP 115/73
[2023-04-14] MEDS ORDERED: WARFARIN SODIUM 5 MG TAB PO ONE (17:00)
[2023-04-14 22:00] VITALS: BP 125/61
[2023-04-15] MEDS: ACETAMINOPHEN 325 MG TAB PO PRN (04:44)
[2023-04-15 05:00] VITALS: BP 112/62
[2023-04-15 06:01] LABS: INR 1.38 (0.9-1.15); Partial Thromboplastin Time 35.4 SEC (24.5-34.5)
[2023-04-15] MEDS: LEVOTHYROXINE SODIUM 50 MCG TAB PO SCH (07:02)
[2023-04-15] MEDS: AZITHROMYCIN 250 MG TAB PO SCH (08:59)
[2023-04-15] MEDS: ASPirin 81 mg TAB PO SCH (08:59)
[2023-04-15] MEDS: cefTRIAXone 1GM/50ML D5W 50 ML IV SCH (08:59)
[2023-04-15] MEDS: PANTOPRAZOLE 40 MG TAB PO SCH (08:59)
[2023-04-15 09:00] VITALS: BP 100/62
[2023-04-15] MEDS ORDERED: FUROSEMIDE 20 MG/2 ML VIAL IV SCH (10:00)
[2023-04-15] MEDS ORDERED: FURO1TAB33 PO (11:19)
[2023-04-15] MEDS ORDERED: AZIT-81 PO (11:19)
[2023-04-15 12:22] VITALS: BP 113/72
[2023-04-15] MEDS: HYDROcodone-ACET 5/325MG TAB PO PRN (12:49)
[2023-04-15 13:00] VITALS: BP 113/72
[2023-04-15] MEDS ORDERED: WARFARIN SODIUM 5 MG TAB PO ONE (17:00)
== END 2023-04-15 14:45 | disposition home or self-care (01) | DRG 137 ==
LOC: ER 19:18 → TELE 04-07 02:29 → TELE-EAST 04-07 17:29
PROVIDERS: ADMIT Nurse Practitioner; ATTEND Internal Medicine
DX: J15.6 Pneumonia due to other Gram-negative bacteria (principal); J96.21 Acute and chronic respiratory failure with hypoxia; I50.21 Acute systolic (congestive) heart failure; D68.9 Coagulation defect, unspecified; K74.60 Unspecified cirrhosis of liver; I11.0 Hypertensive heart disease with heart failure; I73.9 Peripheral vascular disease, unspecified; E03.9 Hypothyroidism, unspecified; E66.9 Obesity, unspecified; J98.11 Atelectasis; Z91.018 Allergy to other foods; Z68.32 Body mass index [BMI] 32.0-32.9, adult; Z82.49 Family history of ischemic heart disease and other diseases of the circulatory system; Z82.5 Family history of asthma and other chronic lower respiratory diseases; Z83.3 Family history of diabetes mellitus; Z86.711 Personal history of pulmonary embolism; Z86.718 Personal history of other venous thrombosis and embolism; Z91.199 Patient's noncompliance with other medical treatment and regimen due to unspecified reason; Z95.1 Presence of aortocoronary bypass graft; Z99.81 Dependence on supplemental oxygen
CPT/HCPCS: 36415; 71045; 71275; 80053; 83735; 83880; 84484; 85007; 85025; 85027; 85379; 85610; 85730; 93005; 93306; 93971; G0378; J0696

== ENCOUNTER 2024-08-27 21:08 | Inpatient (IN) | payer MEDICAID ==
[~2024-08-27] VITALS: Ht 180.3 cm; Wt 107.3 kg
[~2024-08-27 21:08] MED LIST changes: +AZIT-185 PO; +FURO1TAB33 PO; +HYDR-4798 PO; +LEVO100T8 PO
--- NOTE | 2024-08-27 21:48 | ED.PDOC ---
History of Present Illness HPI Comments 43-year-old male presents with a chief complaint of bleeding varicose vein x 1 hour ago now feeling weak. Per patient, he was taking a shower and then noticed that he had a bleeding varicose vein. Patient reports losing quite a bit of blood and is now feeling weak. Patient was sating at 77% on 2L via [place]. Patient has extensive history including Pulmonary Emboli, previously on Warfarin, but no longer takes them due to his frequent varicose vein bleeds. Patient has had a right lobectomy and multiple open heart surgeries due to congenital heart defect. No other symptoms or modifying factors present at this time. Time Seen by MD: 21:44 Primary Care Provider: CAMRYN Allergies: Coded Allergies: No Known Drug Allergy (Verified Allergy, Unknown, 04/07/23) Uncoded Allergies: tomato and onions (Adverse Reaction, Intermediate, 11/07/21) Home Meds Active Scripts Azithromycin (ZITHROMAX TABLET) 250 Mg Tb, 250 MG PO DAILY, #6 TAB Prov:SEGUNDO CRANDALL MD 04/15/23 Furosemide (Lasix) 20 Mg Tb, 1 TAB PO DAILY, #30 TAB 5 Refills Prov:SEGUNDO CRANDALL MD 04/15/23 Warfarin Sodium (Coumadin) 7.5 Mg Tab, 1 TAB PO DAILY, #2 TAB 3 Refills Prov:LEANN SALAS MD 09/16/18 Reported Medications Levothyroxine Sodium (Levothyroxine Sodium) 50 Mcg Tab, 50 MCG PO QAM, TAB 06/06/19 Hydrocodone-Acetaminophen (Orange 5/325MG) 1 Tab Tb, 10-325 TAB PO TIDP PRN for MODERATE PAIN, #90 TAB 06/06/19 [Flovent Ooa814 Mcg] (Flovent Hfa) 110 MCG AER No Conflict Check, MCG 02/01/13 [Ventolin Hfa] (Ventolin Hfa) AER No Conflict Check 02/01/13 Information Source: Patient Mode of Arrival: Ambulatory Severity: Moderate Timing: Hours Duration: Since onset Prehospital treatment: None Past Medical History PAST MEDICAL HISTORY: CHF, HTN, Liver, Thyroid Past Medical History (Other): congenital heart defect Surgical History (Other): multiple cardiac surgeries, Right Lobectomy Family History Family History: No family hx of DM, No family hx of HTN Social History Smoker: Non-Smoker Alcohol: Rarely Drugs: Marijuana Lives In: Home Constitutional: reports: weakness; denies: chills, diaphoresis, fatigue, fever, malaise, sweats, others EENTM: denies: blurred vision, double vision, ear bleeding, ear discharge, ear drainage, ear pain, ear ringing, eye pain, eye redness, hearing loss, mouth pain, mouth swelling, nasal discharge, nose bleeding, nose congestion, nose pain, photophobia, tearing, throat pain, throat swelling, voice changes, others Respiratory: denies: cough, hemoptysis, orthopnea, SOB at rest, shortness of breath, SOB with excertion, stridor, wheezing, others Cardiovascular: denies: chest pain, dizzy spells, diaphoresis, Dyspnea on exertion, edema, irregular heart beat, left arm pain, lightheadedness, palpitations, PND, syncope, others Gastrointestinal: denies: abdomen distended, abdominal pain, blood streaked bowels, constipated, diarrhea, dysphagia, difficulty swallowing, hematemesis, melena, nausea, poor appetite, poor fluid intake, rectal bleeding, rectal pain, vomiting, others Genitourinary: denies: burning, dysuria, flank pain, frequency, hematuria, incontinence, penile discharge, penile sore, pain, testicle pain, testicle swelling, urgency, others Neurological: denies: dizziness, fainting, headache, left sided numbness, left sided weakness, numbness, paresthesia, pre-existing deficit, right sided numbness, right sided weakness, seizure, speech problems, tingling, tremors, weakness, others Musculoskeletal: denies: back pain, gout, joint pain, joint swelling, muscle pa in, muscle stiffness, neck pain, others Integumetry: denies: bruises, change in color, change in hair/nails, dryness, laceration, lesions, lumps, rash, wounds, others Allergic/Immunocompromised: denies: Difficulty Healing, Frequent Infections, Hives, Itching, others Hematologic/Lymphatic: denies: anemia, blood clots, easy bleeding, easy bruising, swollen glands, others Endocrine: denies: excessive hunger, excessive sweating, excessive thirst, excessive urination, flushing, intolerance to cold, intolerance to heat, unexplained weight gain, unexplained weight loss, others Psychiatric: denies: anxiety, bipolar disorder, depression, hopeless, panic disorder, schizophrenia, sleepless, suicidal, others All Other Systems: Reviewed and Negative Physical Exam General Appearance: Mild Distress HEENT: Normal ENT Inspection Neck: Full Range of Motion, Normal Inspection Respiratory: Crackles, Decreased Breath Sounds, No Accessory Muscle Use, Respiratory Distress Cardiovascular: No JVD, Regular Rate/Rhythm Breast Exam: Deferred Gastrointestinal: Non Tender, Soft Genitalia: Deferred Pelvic: Deferred Rectal: Deferred Extremities: Leg edema, Normal range of motion, Pedal edema Neurologic: Alert, No Motor Deficits, Normal Affect, Normal Mood, No Sensory Deficits Cerebellar Function: NOT DONE Reflexes: NOT DONE Skin: Dry, Normal Color, Warm, Other (bleeding varicosity posterior aspect of R calf. no tenderness.) Lymphatic: NOT DONE Was a procedure done? Was a procedure done?: No EKG EKG : Comments Rhythm strip independently interpreted by me: Sinus rhythm, rate 86, no ectopy. Differential Dx Considerations may include: Bleeding varicosity, cellulitis, VTE, CHF, asthma, COPD, pneumonia, anemia, coagulopathy, among others X-Ray, Labs, Meds, VS Vital Signs Date Time Temp Pulse Resp B/P (MAP) Pulse Ox O2 Delivery O2 Flow Rate FiO2 08/28/24 11:25 99 Mask 6.0 08/28/24 11:24 99 Simple Mask* 6 50 08/28/24 11:17 98.2 77 20 131/84 99 6.0 40 98.2 08/28/24 10:43 68 08/28/24 10:00 70 24 131/84 (100) 99 08/28/24 08:08 Simple Mask* 6 50 08/28/24 08:00 98.2 70 18 125/77 (93) 99 98.2 08/28/24 06:00 98.4 68 25 139/88 (105) 97 98.4 08/28/24 03:59 72 08/28/24 03:00 72 18 96 Simple Mask* 8 60 08/28/24 03:00 99.2 72 18 127/82 (97) 97 99.2 08/28/24 01:16 20 95 Simple Mask* 8 60 08/28/24 01:14 75 16 98 Simple Mask* 6 50 08/28/24 01:14 75 16 124/82 (96) 96 08/27/24 21:25 99.2 88 18 135/75 (95) 86 Lab Test 08/27/24 22:35 08/27/24 21:47 Range/Units Troponin I High Sensitivity 4 3 L </=54 ng/L White Blood Count 4.6 4.4-10.8 10^3/uL Red Blood Count 7.96 H 4.5-5.90 10^6/uL Hemoglobin 16.3 13.5-17.5 g/dL Hematocrit 55.1 H 41.0-53.0 % Mean Corpuscular Volume 69.2 L 80.0-100.0 fL Mean Corpuscular Hemoglobin 20.5 L 28.0-32.0 pg Mean Corpuscular Hemoglobin Concent 29.5 L 32.0-36.0 g/dL Red Cell Distribution Width 24.9 H 11.8-14.3 % Platelet Count 145 140-450 10^3/uL Mean Platelet Volume 9.2 6.9-10.8 fL Neutrophils (%) (Auto) 41.7 37.0-80.0 % Lymphocytes (%) (Auto) 39.6 10.0-50.0 % Monocytes (%) (Auto) 14.7 H 0.0-12.0 % Eosinophils (%) (Auto) 1.1 0.0-7.0 % Basophils (%) (Auto) 2.9 H 0.0-2.0 % Neutrophils # (Auto) 1.9 1.6-8.6 10 ^3/uL Lymphocytes # (Auto) 1.8 0.4-5.4 10 ^3/uL Monocytes # (Auto) 0.7 0-1.3 10 ^3/uL Eosinophils # (Auto) 0.1 0-0.8 10 ^3/uL Basophils # (Auto) 0.1 0-0.2 10 ^3/uL Nucleated Red Blood Cells 0.7 % Platelet Estimate Adequate Large Platelets Few Giant Platelets Few Hypochromasia (manual) Marked Anisocytosis (manual) Moderate Microcytosis Marked Target Cells Few Prothrombin Time 14.0 H 9.3-11.8 sec Prothrombin Time INR 1.35 H 0.9-1.15 Activated Partial Thromboplast Time 28.7 24.5-34.5 SEC D-Dimer, Quantitative 0.51 H 0.0-0.49 mg/L FEU Sodium Level 139 136-145 mmol/L Potassium Level 4.4 3.5-5.1 mmol/L Chloride Level 106 98-107 mmol/L Carbon Dioxide Level 30 20-31 mmol/L Anion Gap 3 L 5-15 Blood Urea Nitrogen 15 9-23 mg/dL Creatinine 1.14 0.700-1.30 mg/dL Glomerular Filtration Rate Calc 81 >90 mL/min BUN/Creatinine Ratio 13.2 10.0-20.0 Serum Glucose 89 74-106 mg/dL Calcium Level 10.1 8.7-10.4 mg/dL B-Type Natriuretic Peptide 32.46 0-100 pg/mL Current Medications Medications (Trade) Dose Ordered Sig/Kevin Route Start Time Stop Time Status Last Admin Albuterol (Ventolin Medneb) 5 mg ONCE ONCE NEB 08/28/24 01:00 08/28/24 01:01 DC 08/28/24 01:16 Ipratropium [place] (Atrovent Medneb) 0.5 mg ONCE ONCE NEB 08/28/24 01:00 08/28/24 01:01 DC 08/28/24 01:16 Ceftriaxone Sodium 50 ml @ 100 mls/hr ONCE ONCE IV 08/28/24 05:30 08/28/24 05:59 DC 08/28/24 05:30 Azithromycin 250 ml @ 125 mls/hr ONCE ONCE IV 08/28/24 06:30 08/28/24 08:29 DC 08/28/24 06:33 Acetaminophen/ Hydrocodone Bitart (Orange 5/325MG Tab) 1 tab Q4HP PRN PO 08/28/24 10:30 08/28/24 11:22 PROCEDURE(s): CTACH - CT ANGIO CHEST CONTRAST REASON: hypoxia, h/o PE, r/o new PE ORDER NUMBER(s): [id number], ACCESSION NUMBER(s): [id number] INDICATION: hypoxia, h/o PE, r/o new PE [ TECHNIQUE: Axial CTA images of the chest were obtained after the uneventful administration of 100 mL of Omnipaque 350 IV contrast. Coronal and sagittal reformatted images and MIP images were obtained, reviewed, and stored. One or more of the following dose reduction techniques were used: Automated exposure control. Adjustment of mA and/or kV according to patient size. CTDIvol = 39.08 mGy DLP = 901.58 mGy-cm Findings: Pulmonary arteries: Limited evaluation for pulmonary embolism due to suboptimal contrast opacification of the pulmonary arteries. There is dense, streaky contrast in the main pulmonary artery and right and left pulmonary arteries with apparent communication between the SVC and right pulmonary artery. No contrast is seen in the rest of the right pulmonary artery branches. Dense streaky contrast in the left pulmonary artery branches. There is distention of the IVC and apparent communication between the IVC and right lobar pulmonary arteries. Aorta: No aneurysm or dissection. Cardiac: Heart size is within normal limits. No significant coronary artery calcification. Mediastinum/salazar: No mass or adenopathy. Lungs: Atelectasis in the lung bases. Respiratory motion artifact limits evaluation. Groundglass attenuation in the lung bases may be partly due to respiratory motion and atelectasis. Superimposed infectious or inflammatory etiology not excluded. Chest wall: No mass or other abnormality. Upper abdomen: Cirrhotic liver morphology. Bones: No fracture or suspicious intraosseous lesions. IMPRESSION: 1. Limited evaluation for pulmonary embolism due to the patient's anatomy dense streaky contrast in the main pulmonary arteries and in the left lobar and segmental branches with no contrast opacification of the lobar and segmental branches of the right pulmonary artery related to the patient's anatomy. 2. Respiratory motion also limits evaluation. Atelectasis in the lung bases. Groundglass attenuation in the lung bases may be partly due to respiratory motion and atelectasis. Superimposed infectious or inflammatory etiology not excluded. 3. No aortic aneurysm or dissection. X-Ray, Labs, Meds, VS Comment 43-year-old male with a history of congenital heart defect status post multiple cardiac surgeries and partial lung lobectomy on home O2, hypothyroid, CHF and varicosities presenting complaining of bleeding varicosity in the right lower extremity and general weakness. Vitals remarkable for oxygen saturation 77% on 2 L nasal cannula. Exam remarkable for diminished breath sounds at both bases, bibasilar rales, mild respiratory distress, bleeding varicosity on the posterior aspect of the right lower extremity, 3+ pitting edema bilateral lower extremities Rhythm strip independently interpreted by me: Sinus rhythm, rate 86, no ectopy. Chest x-ray Impression: 1. Patchy consolidations in both lower lungs. 2. Mild cardiomegaly. 3. Advised further evaluation with CT chest without contrast if clinically indicated. CT angio chest: IMPRESSION: 1. Limited evaluation for pulmonary embolism due to the patient's anatomy dense streaky contrast in the main pulmonary arteries and in the left lobar and segmental branches with no contrast opacification of the lobar and segmental branches of the right pulmonary artery related to the patient's anatomy. 2. Respiratory motion also limits evaluation. Atelectasis in the lung bases. Groundglass attenuation in the lung bases may be partly due to respiratory motion and atelectasis. Superimposed infectious or inflammatory etiology not excluded. 3. No aortic aneurysm or dissection. CBC, basic metabolic panel, BNP and 2 serial troponins unremarkable for any abnormality of acute significance coagulation panel remarkable for PT 14, INR 1.35 D-dimer 0.51 Patient treated with the following in the ED: Albuterol 5 mg with Atrovent 0.5 mg nebulized, Rocephin 1 g IV, Zithromax 500 mg IV. Patient refused wound closure with sutures. Surgicel was applied to the bleeding varicosity on the right lower extremity, then a pressure dressing was applied with adequate hemostasis. On re-evaluation, oxygen saturation was 96% on 8 L mask. Other vitals were stable. No respiratory distress. [facility] was contacted for authorization to admit here, as the patient does not appear stable for transfer due to hypoxia and inconclusive results with regard to PE. As of 0600, [place] has not returned our call. Patient endorsed to the oncoming ED physician Dr. Escobedo at 6:00 a.m. pending return call from [place]. Time of 1ST Reevaluation: 22:15 Reevaluation 1ST: Unchanged Time of 2ND Reevaluation: 06:00 Reevaluation 2ND: Unchanged Patient Education/Counseling: Diagnosis, Treatment, Prognosis Family Education/Counseling: No Family Present Departure 1 Departure Time of Disposition: 05:56 Impression: Primary Impression: Bleeding from varicose vein Additional Impressions: Acute and chronic respiratory failure Pneumonia Qualified Codes: J18.9 - Pneumonia, unspecified organism Disposition: ADMITTED INPATIENT Admit to: [facility] Condition: Guarded Critical Care Note Critical Care Time?: Yes (45 min-critical care time only) Critical care comment: Critical care time including multiple bedside re-evaluations, review of lab and imaging studies, and discussion of the case with the admitting provider. Patient is high risk for respiratory and/or hemodynamic decompensation. Stability Stability form required: No Unstable for transfer: Telemetry monitoring (Telemetry monitoring required), Possible rapid decline, Intensive VS monitoring Heart Score Heart Score: Heart Score Response (Comments) Value History N/A 0 EKG N/A 0 Age N/A 0 Risk Factors N/A 0 Troponin N/A 0 Total 0 I personally scribed for HOLLY NEVAREZ MD ([email or web address]) on 08/27/24 at 21:48. Electronically submitted by Jordi Bocye ([email or web address]). HOLLY NEVAREZ MD Aug 27, 2024 21:48
[2024-08-27 22:49] LABS: Chloride 106 mmol/L (98-107); Potassium 4.4 mmol/L (3.5-5.1); Sodium 139 mmol/L (136-145)
[2024-08-27 22:50] LABS: Anion Gap 3 (5-15); Calcium 10.1 mg/dL (8.7-10.4); Carbon Dioxide 30 mmol/L (20-31)
[2024-08-27 22:51] LABS: Basophils # (auto) 0.1 10 ^3/uL (0-0.2); Basophils % (auto) 2.9 % (0.0-2.0); Eosinophils # (auto) 0.1 10 ^3/uL (0-0.8); Eosinophils % (auto) 1.1 % (0.0-7.0); Hematocrit 55.1 % (41.0-53.0); Hemoglobin 16.3 g/dL (13.5-17.5); Lymphocytes # (auto) 1.8 10 ^3/uL (0.4-5.4); Lymphocytes % (auto) 39.6 % (10.0-50.0); Mean Corpuscular Hemoglobin 20.5 pg (28.0-32.0); Mean Corpuscular Hgb Conc. 29.5 g/dL (32.0-36.0); Mean Corpuscular Volume 69.2 fL (80.0-100.0); Monocytes # (auto) 0.7 10 ^3/uL (0-1.3); Monocytes % (auto) 14.7 % (0.0-12.0); Neutrophils # (auto) 1.9 10 ^3/uL (1.6-8.6); Neutrophils % (auto) 41.7 % (37.0-80.0); Nucleated Red Blood Cells % 0.7 %; Platelet Count (auto) 145 10^3/uL (140-450); Red Blood Cells 7.96 10^6/uL (4.5-5.90); Red Cell Distribution Width 24.9 % (11.8-14.3); White Blood Cell 4.6 10^3/uL (4.4-10.8)
[2024-08-27 22:55] LABS: BUN/Creatinine Ratio 13.2 (10.0-20.0); Blood Urea Nitrogen 15 mg/dL (9-23); Glucose 89 mg/dL (74-106)
[2024-08-27 23:02] LABS: INR 1.35 (0.9-1.15); Partial Thromboplastin Time 28.7 SEC (24.5-34.5)
[2024-08-27 23:22] LABS: Anisocytosis Moderate; Hypochromia Marked; Large Platelets FEW; Platelet Estimate Adequate; Target Cell FEW
[2024-08-27 23:23] LABS: Giant Platelets Few
[2024-08-28] VITALS (8 sets, daily range): BP systolic 131–146; BP diastolic 83–84; PULSE 65–77; RESP 15–20; TEMP 98.1–98.2; O2SAT 96–100
[2024-08-28] MEDS: IPRATROPIUM BROM 0.5 MG/2.5ML INH SOL NEB ONE (01:16)
[2024-08-28] MEDS: ALBUTEROL SULF 2.5 MG/0.5ML(0.5%) NEB SOLN NEB ONE (01:16)
[2024-08-28] MEDS: IOHEXOL 350 MG/ML 100ML IJ ONE (01:34)
--- NOTE | 2024-08-28 03:43 | DVH ---
Examination: CXRP Clinical Indication: hypoxia Comparison: None. Technique: Frontal radiograph of the chest was obtained. Findings: Inhomogeneous radiopacities in both lower lungs, suggestive of patchy consolidations. No pleural effusion on either side in current study. There is no pneumothorax. Mild cardiomegaly. No acute osseous abnormality is seen. Sternotomy sutures noted. Please correlate with operative history. Few small hyperdensities (likely surgical clips) noted overlying the right lung apex and along the le ft heart border. Please correlate with operative history. Impression: 1. Patchy consolidations in both lower lungs. 2. Mild cardiomegaly. 3. Advised further evaluation with CT chest without contrast if clinically indicated. Electronically Signed 08/28/2024 03:34 Boo Booker
--- NOTE | 2024-08-28 04:09 | DVH ---
INDICATION: hypoxia, h/o PE, r/o new PE [ TECHNIQUE: Axial CTA images of the chest were obtained after the uneventful administration of 100 mL of Omnipaq ue 350 IV contrast. Coronal and sagittal reformatted images and MIP images were obtained, reviewed, a nd stored. One or more of the following dose reduction techniques were used: Automated exposure contr ol. Adjustment of mA and/or kV according to patient size. CTDIvol = 39.08 mGy DLP = 901.58 mGy-cm Findings: Pulmonary arteries: Limited evaluation for pulmonary embolism due to suboptimal contrast opacificatio n of the pulmonary arteries. There is dense, streaky contrast in the main pulmonary artery and right and left pulmonary arteries with apparent communication between the SVC and right pulmonary artery. N o contrast is seen in the rest of the right pulmonary artery branches. Dense streaky contrast in the left pulmonary artery branches. There is distention of the IVC and apparent communication between the IVC and right lobar pulmonary arteries. Aorta: No aneurysm or dissection. Cardiac: Heart size is within normal limits. No significant coronary artery calcification. Mediastinum/salazar: No mass or adenopathy. Lungs: Atelectasis in the lung bases. Respiratory motion artifact limits evaluation. Groundglass atte nuation in the lung bases may be partly due to respiratory motion and atelectasis. Superimposed infec tious or inflammatory etiology not excluded. Chest wall: No mass or other abnormality. Upper abdomen: Cirrhotic liver morphology. Bones: No fracture or suspicious intraosseous lesions. IMPRESSION: 1. Limited evaluation for pulmonary embolism due to the patient's anatomy dense streaky contrast in t he main pulmonary arteries and in the left lobar and segmental branches with no contrast opacificatio n of the lobar and segmental branches of the right pulmonary artery related to the patient's anatomy. 2. Respiratory motion also limits evaluation. Atelectasis in the lung bases. Groundglass attenuation in the lung bases may be partly due to respiratory motion and atelectasis. Superimposed infectious or inflammatory etiology not excluded. 3. No aortic aneurysm or dissection.
[2024-08-28] MEDS: cefTRIAXone 1GM/50ML D5W 50 ML IV ONE (05:30)
[2024-08-28] MEDS: AZITHROMYCIN 500MG/ 250ML 250 ML IV ONE (06:33)
[2024-08-28] MEDS ORDERED: ONDANSETRON HCL 4 MG/2 ML VIAL IV PRN (10:30)
[2024-08-28] MEDS ORDERED: ACETAMINOPHEN 325 MG TAB PO PRN (10:30)
[2024-08-28] MEDS ORDERED: ALBUTEROL SULF 2.5 MG/0.5ML(0.5%) NEB SOLN NEB PRN (10:30)
[2024-08-28] MEDS ORDERED: IPRATROPIUM BROM 0.5 MG/2.5ML INH SOL NEB PRN (10:30)
[2024-08-28] MEDS ORDERED: DOCUSATE SOD 100 MG CAP PO PRN (10:30)
[2024-08-28] MEDS: HYDROcodone-ACET 5/325MG TAB PO PRN (11:22)
[2024-08-28] MEDS ORDERED: MORPHINE SULFATE INJ 2 MG/ml SYRG IV PRN (12:00)
[2024-08-28] MEDS ORDERED: NITROGLYCERIN 0.4 MG SL TAB SL PRN (12:00)
--- NOTE | 2024-08-28 12:00 | DVHHP2 ---
History of Present Illness Reason for Visit: Bleeding from varicose vein History of Present Illness The patient is a 43-year-old male with multiple past medical history including PE stop taking Coumadin due to frequent varicose vein bleed, liver disease, hypertension, and CHF who presented to [facility] ED with complaint of bleeding of varicose vein. Patient reports symptoms progressively get worse with weakness, shortness of breaths, getting worse that prompted this visit. Patient was seen and evaluated in the ED, laboratory data shows WBC 4.6, platelets 145, sodium 139, potassium 4.4, BUN 15, creatinine 1.14, glucose 89, troponin 3, BNP 32.46, D-dimer 0.51. Chest x-ray revealing patchy consolidations in both lower lungs, mild cardiomegaly. Please see medication orders section in the computer. On my assessment, patient denied chest pain, no headache, no dizziness, no shortness of breath, no nausea, no vomiting, no fever, no chills. Patient was admitted for further evaluation and medical management. Past Medical History CHF, HTN, Liver, Thyroid, Congenital heart defect, PE Past Surgical History Multiple cardiac surgeries, Right Lobectomy Family History Reviewed, noncontributory to the management of this case. Past Social History The patient lives at home, denies smoking, drinks alcohol occasionally, uses marijuana. Review of Systems Constitutional: Yes: Weakness; No: Fever, Chills, Sweats, Malaise, Other Eyes: No: Pain, Vision change, Conjunctivae inflammation, Eyelid inflammation, Other, Redness ENT: No: Ear pain, Ear discharge, Nose pain, Nose discharge, Nose congestion, Mouth pain, Mouth swelling, Throat pain, Throat swelling, Other Respiratory: Shortness of breath; No: Cough, Dry, SOB with excertion, Wheezing, Hemoptysis, Pleuritic Pain, Sputum, Wheezing, Other Cardiovascular: No: Chest Pain, Palpitations, Orthopnea, Paroxysmal Noc. Dyspnea, Edema, Lt Headedness, Other Gastrointestinal: No: Nausea, Vomiting, Abdominal Pain, Diarrhea, Constipation, Melena, Hematochezia, Other Genitourinary: No Dysuria, No Frequency, No Incontinence, No Hematuria, No Re tention, No Other Musculoskeletal: No: other, neck pain, shoulder pain, arm pain, back pain, hand pain, leg pain, foot pain Skin: No: Rash, Lesions, Jaundice, Bruising, Other Neurological: No: Weakness, Numbness, Incoordination, Change in speech, Confusion, Seizures, Other Allergies: Coded Allergies: No Known Drug Allergy (Verified Allergy, Unknown, 04/07/23) Uncoded Allergies: tomato and onions (Adverse Reaction, Intermediate, 11/07/21) Medications Current Medications Medications Dose Ordered Sig/Kevin Route Start Time Stop Time Status Last Admin Dose Admin Azithromycin 250 ml @ 125 mls/hr DAILY IV 08/29/24 10:00 Future Hold Ceftriaxone Sodium 50 ml @ 100 mls/hr DAILY@09 IV 08/29/24 09:00 Albuterol 2.5 mg Q4HPRN PRN NEB 08/28/24 10:30 Ipratropium [place] 0.5 mg Q4HPRN PRN NEB 08/28/24 10:30 Warfarin Sodium RX PROTOCOL PER PHARMACY PO 08/28/24 10:30 UNV Sodium Chloride 10 ml Q8HR IV 08/28/24 14:00 Acetaminophen/ Hydrocodone Bitart 1 tab Q4HP PRN PO 08/28/24 10:30 08/28/24 11:22 1 TAB Ondansetron HCl 4 mg Q4HP PRN IV 08/28/24 10:30 Docusate Sodium 100 mg BIDPRN PRN PO 08/28/24 10:30 Acetaminophen 650 mg Q6HP PRN PO 08/28/24 10:30 Levothyroxine Sodium 50 mcg QAM@0600 PO 08/29/24 06:00 Exam Vital Signs Vital Signs Date Time Temp Pulse Resp B/P (MAP) Pulse Ox O2 Delivery O2 Flow Rate FiO2 08/28/24 11:25 99 Mask 6.0 08/28/24 11:24 50 08/28/24 11:17 98.2 77 20 131/84 98.2 General Appearance: Alert, Oriented X3, Cooperative, No acute distress HEENT: Atraumatic, PERRLA, EOMI, Mucous membr. moist/pink Respiratory: Normal air movement, Other (Diminished breath sounds) Cardiovascular: Regular rate, Normal S1, Normal S2, No murmurs Abdominal: Normal bowel sounds, Soft, No tenderness, No hepatospenomegaly, No masses Extremities: No clubbing, No cyanosis, No edema, Normal pulses, No tenderness/swelling Skin: No rashes, No breakdown, No significant lesion Neuro: Normal speech, Normal tone, Sensation intact, Cranial nerves 3-12 NL, R eflexes 2+, Other (Generalized weakness) Psych/Mental Status: Mental status NL, Mood NL Labs/Xrays Labs Test 08/27/24 22:35 08/27/24 21:47 Range/Units Troponin I High Sensitivity 4 </=54 ng/L White Blood Count 4.6 4.4-10.8 10^3/uL Red Blood Count 7.96 H 4.5-5.90 10^6/uL Hemoglobin 16.3 13.5-17.5 g/dL Hematocrit 55.1 H 41.0-53.0 % Mean Corpuscular Volume 69.2 L 80.0-100.0 fL Mean Corpuscular Hemoglobin 20.5 L 28.0-32.0 pg Mean Corpuscular Hemoglobin Concent 29.5 L 32.0-36.0 g/dL Red Cell Distribution Width 24.9 H 11.8-14.3 % Platelet Count 145 140-450 10^3/uL Mean Platelet Volume 9.2 6.9-10.8 fL Neutrophils (%) (Auto) 41.7 37.0-80.0 % Lymphocytes (%) (Auto) 39.6 10.0-50.0 % Monocytes (%) (Auto) 14.7 H 0.0-12.0 % Eosinophils (%) (Auto) 1.1 0.0-7.0 % Basophils (%) (Auto) 2.9 H 0.0-2.0 % Neutrophils # (Auto) 1.9 1.6-8.6 10 ^3/uL Lymphocytes # (Auto) 1.8 0.4-5.4 10 ^3/uL Monocytes # (Auto) 0.7 0-1.3 10 ^3/uL Eosinophils # (Auto) 0.1 0-0.8 10 ^3/uL Basophils # (Auto) 0.1 0-0.2 10 ^3/uL Nucleated Red Blood Cells 0.7 % Platelet Estimate Adequate Large Platelets Few Giant Platelets Few Hypochromasia (manual) Marked Anisocytosis (manual) Moderate Microcytosis Marked Target Cells Few Prothrombin Time 14.0 H 9.3-11.8 sec Prothrombin Time INR 1.35 H 0.9-1.15 Activated Partial Thromboplast Time 28.7 24.5-34.5 SEC D-Dimer, Quantitative 0.51 H 0.0-0.49 mg/L FEU Sodium Level 139 136-145 mmol/L Potassium Level 4.4 3.5-5.1 mmol/L Chloride Level 106 98-107 mmol/L Carbon Dioxide Level 30 20-31 mmol/L Anion Gap 3 L 5-15 Blood Urea Nitrogen 15 9-23 mg/dL Creatinine 1.14 0.700-1.30 mg/dL Glomerular Filtration Rate Calc 81 >90 mL/min BUN/Creatinine Ratio 13.2 10.0-20.0 Serum Glucose 89 74-106 mg/dL Calcium Level 10.1 8.7-10.4 mg/dL B-Type Natriuretic Peptide 32.46 0-100 pg/mL PATIENT: LIBAN MORALES MACCT: [id number] UNIT: [id number] : 1980 LOC: ER ROOM / BED: / AGE / SEX: 43 / M ADM STATUS: REG ER SERVICE [id number] ORDERING PHYSICIAN: HOLLY NEVAREZ MD PROCEDURE(s): CTACH - CT ANGIO CHEST CONTRAST REASON: hypoxia, h/o PE, r/o new PE ORDER NUMBER(s): [id number], ACCESSION NUMBER(s): [id number] INDICATION: hypoxia, h/o PE, r/o new PE [ TECHNIQUE: Axial CTA images of the chest were obtained after the uneventful administration of 100 mL of Omnipaque 350 IV contrast. Coronal and sagittal reformatted images and MIP images were obtained, reviewed, and stored. One or more of the following dose reduction techniques were used: Automated exposure control. Adjustment of mA and/or kV according to patient size. CTDIvol = 39.08 mGy DLP = 901.58 mGy-cm Findings: Pulmonary arteries: Limited evaluation for pulmonary embolism due to suboptimal contrast opacification of the pulmonary arteries. There is dense, streaky contrast in the main pulmonary artery and right and left pulmonary arteries with apparent communication between the SVC and right pulmonary artery. No contrast is seen in the rest of the right pulmonary artery branches. Dense streaky contrast in the left pulmonary artery branches. There is distention of the IVC and apparent communication between the IVC and right lobar pulmonary arteries. Aorta: No aneurysm or dissection. Cardiac: Heart size is within normal limits. No significant coronary artery ca lcification. Mediastinum/salazar: No mass or adenopathy. Lungs: Atelectasis in the lung bases. Respiratory motion artifact limits e valuation. Groundglass attenuation in the lung bases may be partly due to respiratory motion and atelectasis. Superimposed infectious or inflammatory etiology not excluded. Chest wall: No mass or other abnormality. Upper abdomen: Cirrhotic liver morphology. Bones: No fracture or suspicious intraosseous lesions. IMPRESSION: 1. Limited evaluation for pulmonary embolism due to the patient's anatomy dense streaky contrast in the main pulmonary arteries and in the left lobar and segmental branches with no contrast opacification of the lobar and segmental branches of the right pulmonary artery related to the patient's anatomy. 2. Respiratory motion also limits evaluation. Atelectasis in the lung bases. Ground-glass attenuation in the lung bases may be partly due to respiratory motion and atelectasis. Superimposed infectious or inflammatory etiology not excluded. 3. No aortic aneurysm or dissection. ORDERING PHYSICIAN: HOLLY NEVAREZ MD PROCEDURE(s): CXRP - CHEST PORTABLE REASON: hypoxia ORDER NUMBER(s): [id number], ACCESSION NUMBER(s): [id number] Examination: CXRP Clinical Indication: hypoxia Comparison: None. Technique: Frontal radiograph of the chest was obtained. Findings: Inhomogeneous radiopacities in both lower lungs, suggestive of patchy consolidations. No pleural effusion on either side in current study. There is no pneumothorax. Mild cardiomegaly. No acute osseous abnormality is seen. Sternotomy sutures noted. Please correlate with operative history. Few small hyperdensities (likely surgical clips) noted overlying the right lung apex and along the left heart border. Please correlate with operative history. Impression: 1. Patchy consolidations in both lower lungs. 2. Mild cardiomegaly. 3. Advised further evaluation with CT chest without contrast if clinically indicated. Assessment/Plan Assessment/Plan Bleeding from varicose vein Acute and chronic respiratory failure Generalized weakness Pneumonia, unspecified organism Plan 1. Admit to telemetry unit 2. Breathing treatment 3. Pain control management 4. IV antibiotic management 5. Management of fluids and electrolytes 6. Consultation for hospitalist 7. Diagnostic test chest x-ray 8. DVT prophylaxis-on aspirin 9. Repeat labs CBC, CMP in a.m. 10. Home medication reviewed and reconciled 11. Continue with current medical management 12. Treatment plan discussed with patient and RN. Patient verbalized understanding. Plan discussed with: Patient, Other (RN) My Orders Orders - OLMAN WALKER DNP Procedure Category Date Status Time Azithromycin 500mg/ PHA 08/29/24 In Process 250ml (Zithromax 50 10:00 Ceftriaxone 1gm/50ml PHA 08/29/24 In Process D5w (Rocephin) 09:00 Consult CONS 08/28/24 Transmitted Vascular/Endovascular 10:20 Albuterol Medneb PHA 08/28/24 In Process (Ventolin Medneb) 10:30 Ipratropium Med[place] PHA 08/28/24 In Process (Atrovent Medneb) 10:30 Warfarin Per Rx PHA 08/28/24 Logged Protocol (Coumadin 10:30 Allergies MIQUEL 08/28/24 In Process 10:20 Code Status CODE 08/28/24 Transmitted 10:20 Sodium Chloride Lock PHA 08/28/24 In Process (Saline Lock Ns) 14:00 Oxygen Per Hour RT 08/28/24 Transmitted 10:20 Hydrocodone-Acet PHA 08/28/24 In Process 5/325mg Tab ([place] 10:30 Ondansetron Hcl PHA 08/28/24 In Process (Zofran) 10:30 Docusate Sodium PHA 08/28/24 In Process Capsule (Colace 10:30 Complete Blood Count LAB 08/29/24 Verified 04:00 Comprehensive LAB 08/29/24 Verified Metabolic Panel 04:00 Cardiac DIET 08/28/24 Transmitted Diet-2gna,Lofat,Lochol Lunch Condition: Serious MIQUEL 08/28/24 In Process 10:20 Acetaminophen Tablet PHA 08/28/24 In Process (Tylenol Tablet) 10:30 Bedrest With Bathroom MIQUEL 08/28/24 In Process Privileg 10:20 Levothyroxine Tablet PHA 08/29/24 In Process (Synthroid Tablet) 06:00 Admit ADMIT 08/28/24 Transmitted 11:59 Nitroglycerin PHA 08/28/24 Transmitted Sublingual (Ntrostat 12:00 Morphine Sulfate PHA 08/28/24 Transmitted Injection 12:00 Notify Of Changes MIQUEL 08/28/24 Transmitted From Base 11:59 Drug Safety Data Management Specialist For MIQUEL 08/28/24 Transmitted 24 Hours 11:59 Emergency Dysrhythmia MIQUEL 08/28/24 Transmitted Protocol 11:59 Rhythm Strips Once MIQUEL 08/28/24 Transmitted Every Shift 11:59 Oxygen By Nasal RT 08/28/24 Transmitted Cannula 11:59 Problem List: (1) Bleeding from varicose vein (2) Generalized weakness (3) Acute and chronic respiratory failure (4) Pneumonia, unspecified organism Date of Service: Aug 28, 2024 Billing Provider: OLMAN WALKER DNP Common Visit Codes: [id number] INP/OBS CARE (HIGH) OLMAN WALKER DNP Aug 28, 2024 12:00
[2024-08-28] MEDS: SODIUM CHLOR 0.9% PF (SALINE LOCK) 10ML VIAL/SYR IV SCH (14:16)
[2024-08-28 15:55] LABS: INR 1.4 (0.9-1.15); Partial Thromboplastin Time 31.2 SEC (24.5-34.5); Prothrombin Time 14.5 sec (9.3-11.8)
[2024-08-28] MEDS: WARFARIN SODIUM 2.5 MG TAB PO ONE (16:50)
[2024-08-29] VITALS (8 sets, daily range): BP systolic 98–123; BP diastolic 55–88; PULSE 61–76; RESP 18–20; TEMP 97.7–98.4; O2SAT 90–100
[2024-08-29] MEDS ORDERED: ALBUAER3 IN (00:43)
[2024-08-29] MEDS ORDERED: ALBU0.084 NEB (00:43)
[2024-08-29] MEDS: LEVOTHYROXINE SODIUM 50 MCG TAB PO SCH (05:59)
[2024-08-29 06:35] LABS: Basophils # (auto) 0.1 10 ^3/uL (0-0.2); Eosinophils # (auto) 0.1 10 ^3/uL (0-0.8); Lymphocytes # (auto) 1.5 10 ^3/uL (0.4-5.4); Neutrophils # (auto) 1.5 10 ^3/uL (1.6-8.6); White Blood Cell 3.7 10^3/uL (4.4-10.8)
[2024-08-29 06:37] LABS: Basophils % (auto) 1.6 % (0.0-2.0); Eosinophils % (auto) 3.5 % (0.0-7.0); Hematocrit 50.9 % (41.0-53.0); Hemoglobin 15.2 g/dL (13.5-17.5); Mean Corpuscular Hemoglobin 20.3 pg (28.0-32.0); Mean Corpuscular Hgb Conc. 29.9 g/dL (32.0-36.0); Monocytes # (auto) 0.5 10 ^3/uL (0-1.3); Monocytes % (auto) 14.3 % (0.0-12.0); Neutrophils % (auto) 39.6 % (37.0-80.0); Nucleated Red Blood Cells % 0.5 %; Platelet Count (auto) 109 10^3/uL (140-450); Red Blood Cells 7.49 10^6/uL (4.5-5.90)
[2024-08-29 06:49] LABS: INR 1.35 (0.9-1.15); Partial Thromboplastin Time 31.6 SEC (24.5-34.5)
[2024-08-29 06:52] LABS: Alanine Aminotransferase 14 U/L (7-40); Alkaline Phosphatase 70 U/L (46-116); Anion Gap 5 (5-15); BUN/Creatinine Ratio 15.2 (10.0-20.0); Blood Urea Nitrogen 12 mg/dL (9-23); Calcium 9.2 mg/dL (8.7-10.4); Carbon Dioxide 26 mmol/L (20-31); Chloride 105 mmol/L (98-107); Glucose 68 mg/dL (74-106); Potassium 4.3 mmol/L (3.5-5.1); Red Cell Distribution Width 24.5 % (11.8-14.3); Sodium 136 mmol/L (136-145)
[2024-08-29 06:53] LABS: Albumin 3.6 g/dL (3.2-4.8); Aspartate Aminotransferase 18 U/L (13-40)
[2024-08-29 06:54] LABS: Bilirubin, Total 4.1 mg/dL (0.2-1.0); Total Protein 7.3 g/dL (5.7-8.2)
[2024-08-29 08:42] LABS: Anisocytosis Moderate
[2024-08-29 08:43] LABS: Hypochromia Marked; Target Cell FEW
[2024-08-29 08:44] LABS: Large Platelets FEW; Platelet Estimate Decrea
[2024-08-29] MEDS: cefTRIAXone 1GM/50ML D5W 50 ML IV SCH (09:59)
[2024-08-29] MEDS ORDERED: AZITHROMYCIN 500MG/ 250ML 250 ML IV SCH (10:00)
--- NOTE | 2024-08-29 15:02 | DVHPN2 ---
Subjective Patient reports having bilateral lower extremity swelling. Reviewed: Care Plan, H&P, Labs, Medications Changes from previous H/P or p: No Changes Eyes: No Pain, No Vision change, No Conjunctivae inflammation, No Eyelid inflammation, No Other, No Redness ENT: No Ear pain, No Ear discharge, No Nose pain, No Nose discharge, No Nose congestion, No Mouth pain, No Mouth swelling, No Throat pain, No Throat swelling, No Other Cardiovascular: No Chest Pain, No Palpitations, No Orthopnea, No Paroxysmal Noc. Dyspnea, No Edema, No Lt Headedness, No Other Respiratory: No Cough, No Dry; Shortness of breath; No SOB with excertion, No Wheezing, No Hemoptysis, No Pleuritic Pain, No Sputum, No Other Gastrointestinal: No Nausea, No Vomiting, No Abdominal Pain, No Diarrhea, No Constipation, No Melena, No Hematochezia, No Other Genitourinary: No Dysuria, No Frequency, No Incontinence, No Hematuria, No Retention, No Other Musculoskeletal: No other, No neck pain, No shoulder pain, No arm pain, No back pain, No hand pain, No leg pain, No foot pain Skin: No Rash, No Lesions, No Jaundice, No Bruising, No Other Objective Vitals Vital Signs Date Time Temp Pulse Resp B/P (MAP) Pulse Ox O2 Delivery O2 Flow Rate FiO2 08/29/24 13:03 97.7 66 19 101/58 (72) 96 97.7 08/29/24 09:45 Mask 6.0 08/29/24 09:45 50 Intake/Output Intake and Output 08/29/24 07:00 Intake Total 725 ml Balance 725 ml Intake Oral 600 ml IV Total 125 ml # Voids 2 General Appearance: Alert, Oriented X3, Cooperative, mild distress HEENT: Atraumatic, PERRLA Lungs: Clear to auscultation, Normal air movement Cardiovascular: Normal S1, Normal S2 Abdomen: Normal bowel sounds, Soft, No tenderness Musculoskeletal: Normal sensory function, Normal motor function Neuro: Normal speech Psych/Mental Status: Mental status NL, Mood NL Medications Current Medications Medications Dose Ordered Sig/Kevin Route Start Time Stop Time Status Last Admin Dose Admin Azithromycin 250 ml @ 125 mls/hr DAILY IV 08/29/24 10:00 Hold Ceftriaxone Sodium 50 ml @ 100 mls/hr DAILY@09 IV 08/29/24 09:00 11/12/24 09:59 100 MLS/HR Albuterol 2.5 mg Q4HPRN PRN NEB 08/28/24 10:30 Ipratropium [place] 0.5 mg Q4HPRN PRN NEB 08/28/24 10:30 Warfarin Sodium RX PROTOCOL PER PHARMACY PO 08/28/24 10:30 Sodium Chloride 10 ml Q8HR IV 08/28/24 14:00 08/29/24 05:37 10 ML Acetaminophen/ Hydrocodone Bitart 1 tab Q4HP PRN PO 08/28/24 10:30 08/28/24 20:42 1 TAB Ondansetron HCl 4 mg Q4HP PRN IV 08/28/24 10:30 Docusate Sodium 100 mg BIDPRN PRN PO 08/28/24 10:30 Acetaminophen 650 mg Q6HP PRN PO 08/28/24 10:30 Levothyroxine Sodium 50 mcg QAM@0600 PO 08/29/24 06:00 08/29/24 05:59 50 MCG Nitroglycerin 0.4 mg Q5MINP PRN SL 08/28/24 12:00 Morphine Sulfate 2 mg Q30M PRN IV 08/28/24 12:00 Laboratory Results Laboratory Tests 08/29/24 05:29 Chemistry Test 08/29/24 05:29 Albumin 3.6 g/dL (3.2-4.8) Calcium Level 9.2 mg/dL (8.7-10.4) Total Protein 7.3 g/dL (5.7-8.2) Coagulation Test 08/28/24 14:58 08/29/24 05:29 Prothrombin Time 14.5 sec (9.3-11.8) H 14.0 sec (9.3-11.8) H Prothrombin Time INR 1.40 (0.9-1.15) H 1.35 (0.9-1.15) H Activated Partial Thromboplast Time 31.2 SEC (24.5-34.5) 31.6 SEC (24.5-34.5) LFT Test 08/29/24 05:29 Alanine Aminotransferase (ALT) 14 U/L (7-40) Alkaline Phosphatase 70 U/L (46-116) Aspartate Amino Transferase (AST) 18 U/L (13-40) Total Bilirubin 4.1 mg/dL (0.2-1.0) H Labs and/or images reviewed: Labs reviewed by me, Image(s) reviewed by me Assessment/Plan Assessment/Plan Impression: -acute variceal bleeding to right lower extremity -acute on chronic hypoxic respiratory failure -acute on chronic systolic heart failure with ejection fraction 25% NSTEMI Hypertension [place] shunt Chronic respiratory failure due to congenital heart disease with [place] shunt History of pulmonary embolism Medical noncompliance, patient refused to take Coumadin at home. Possible bacteria PNA. Plan: -stop Coumadin -continue O2 supplementation: Patient on 6 L via simple mask -start IV diuresis -patient's heart rate 65, hold beta-blockers. Start NABOR inhibitor -repeat labs in a.m. -given patient's worsening decompensated heart failure and O2 requirements, patient was unstable to transfer to [facility]. We will re-evaluate tomorrow after adequate diuresis. Patient will also need evaluation by vascular surgeon for treatment of repeated varicose vein bleeding in the setting of the patient with history of Coumadin use for PE. Total time spent with patient discussing and formulating plan of care: 35 minutes. This medical document was created using an electronic medical record system with Yaphie dictation system. Although this document has been carefully reviewed, there may still be some phonetic and typographical errors. These areas are purely typographical due to imperfections of the software programs, and do not reflect any compromise in the patient's medical care. Plan discussed with: Patient, Other (RN) My Orders Orders - STEVE COLON NP Procedure Category Date Status Time Cover Wound With Dry MIQUEL 08/29/24 In Process Dressing 10:25 * Top Knitter CONS 08/29/24 Verified Consult Furosemide Injection PHA 08/29/24 Verified (Lasix Injection) 15:00 Furosemide Injection PHA 08/30/24 Verified (Lasix Injection) 10:00 Complete Blood Count LAB 08/30/24 Verified 04:00 Basic Metabolic Panel LAB 08/30/24 Verified 04:00 Date of Service: Aug 29, 2024 Billing Provider: STEVE COLON NP Common Visit Codes: [id number] INP/OBS CARE(HIGH) STEVE COLON NP Aug 29, 2024 15:02
[2024-08-29] MEDS: FUROSEMIDE 40 MG/4 ML VIAL IV ONE (15:50)
[2024-08-30] VITALS (8 sets, daily range): BP systolic 94–107; BP diastolic 63–70; PULSE 60–69; RESP 18–22; TEMP 36.7; O2SAT 92–98
[2024-08-30 07:30] LABS: Basophils # (auto) 0 10 ^3/uL (0-0.2); Eosinophils # (auto) 0.1 10 ^3/uL (0-0.8); Eosinophils % (auto) 3.8 % (0.0-7.0); Hemoglobin 16.5 g/dL (13.5-17.5); Monocytes # (auto) 0.5 10 ^3/uL (0-1.3)
[2024-08-30 07:32] LABS: Basophils % (auto) 0.5 % (0.0-2.0); Hematocrit 54.5 % (41.0-53.0); Lymphocytes # (auto) 1.1 10 ^3/uL (0.4-5.4); Lymphocytes % (auto) 33.7 % (10.0-50.0); Mean Corpuscular Hemoglobin 20.5 pg (28.0-32.0); Mean Corpuscular Hgb Conc. 30.2 g/dL (32.0-36.0); Mean Corpuscular Volume 67.7 fL (80.0-100.0); Monocytes % (auto) 15.6 % (0.0-12.0); Neutrophils # (auto) 1.5 10 ^3/uL (1.6-8.6); Neutrophils % (auto) 46.4 % (37.0-80.0); Nucleated Red Blood Cells % 1.1 %; Platelet Count (auto) 120 10^3/uL (140-450); Red Blood Cells 8.04 10^6/uL (4.5-5.90); White Blood Cell 3.3 10^3/uL (4.4-10.8)
[2024-08-30 07:39] LABS: Red Cell Distribution Width 24.9 % (11.8-14.3)
[2024-08-30 07:40] LABS: Calcium 9.4 mg/dL (8.7-10.4); Chloride 104 mmol/L (98-107); Potassium 4.1 mmol/L (3.5-5.1); Sodium 140 mmol/L (136-145)
[2024-08-30 07:41] LABS: Anion Gap 7 (5-15); Carbon Dioxide 29 mmol/L (20-31)
[2024-08-30 07:46] LABS: BUN/Creatinine Ratio 14.6 (10.0-20.0); Blood Urea Nitrogen 14 mg/dL (9-23); Glucose 78 mg/dL (74-106)
[2024-08-30 07:58] LABS: INR 1.35 (0.9-1.15); Partial Thromboplastin Time 31.8 SEC (24.5-34.5)
[2024-08-30 08:06] LABS: Anisocytosis Moderate; Hypochromia Marked; Platelet Estimate F
[2024-08-30 08:07] LABS: Large Platelets FEW
[2024-08-30] MEDS: FUROSEMIDE 40 MG/4 ML VIAL IV SCH (09:11)
--- NOTE | 2024-08-30 09:15 | DVHCONRES ---
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 Patient reports symptoms progressively get worse with weakness, shortness of breaths, getting worse that prompted this visit. Patient was seen and evaluated in the ED, laboratory data shows WBC 4.6, platel ets 145, sodium 139, potassium 4.4, BUN 15, creatinine 1.14, glucose 89, troponin 3, BNP 32.46, D-dimer 0.51. Chest x-ray revealing patchy consolidations in both lower lungs, mild cardiomegaly. Please see medication orders section in the computer. On my assessment, patient denied chest pain, no headache, no dizziness, no shortness of breath, no nausea, no vomiting, no fever, no chills. This hospitalization no further bleeding. Patient states swelling has improved significantly. Patient does not wear compression socks routinely. Past Medical History pe, varicose vein bleed, liver disease, hypertension, and CHF Family History: Arthritis Asthma Diabetes mellitus G8 MOTHER Hypertension Family History Noncontributory Social History Nonsmoker nondrinker Allergies: Coded Allergies: No Known Drug Allergy (Verified Allergy, Unknown, 04/07/23) Uncoded Allergies: tomato and onions (Adverse Reaction, Intermediate, 11/07/21) Home Meds Active Scripts Azithromycin (ZITHROMAX TABLET) 250 Mg Tb, 250 MG PO DAILY, #6 TAB Prov:SEGUNDO CRANDALL MD 04/15/23 Furosemide (Lasix) 20 Mg Tb, 1 TAB PO DAILY, #30 TAB 5 Refills Prov:SEGUNDO CRANDALL MD 04/15/23 Reported Medications Levothyroxine Sodium (Levothyroxine Sodium) 100 Mcg Tab, 1 TAB PO DAILY for 100 Days, #100 08/29/24 Hydrocodone-Acetaminophen (Hydrocodone Bitartrate/AC 10-325 mg) 1 Tab Tab, 1 TAB PO BID PRN for PAIN for 30 Days, #60 08/29/24 Albuterol Sulfate (VENTOLIN MDI) 90 Mcg Ih, 90 MCG IN, INH 08/29/24 Albuterol Sulfate (Albuterol Sulfate) 0.083 % Neb, 1 VIAL NEB Q4HPRN, #50 VIAL 08/29/24 [Flovent Ecg678 Mcg] (Flovent Hfa) 110 MCG AER No Conflict Check, MCG 02/01/13 [Ventolin Hfa] (Ventolin Hfa) AER No Conflict Check 02/01/13 Discontinued Reported Medications Levothyroxine Sodium (Levothyroxine Sodium) 50 Mcg Tab, 50 MCG PO QAM, TAB 06/06/19 Current Medications Current Medications Medications (Trade) Dose Ordered Sig/Kevin Route PRN Reason Start Time Stop Time Status Last Admin Azithromycin 250 ml @ 125 mls/hr DAILY IV 08/29/24 10:00 Hold Furosemide (Lasix Injection) 40 mg DAILY IV 08/30/24 10:00 Review of Systems All systems reviewed otherwise negative other than HPI. Vital Signs Vital Signs Date Time Temp Pulse Resp B/P (MAP) Pulse Ox O2 Delivery O2 Flow Rate FiO2 08/30/24 05:00 97.9 65 22 94/63 (73) 98 97.9 08/29/24 20:00 Room Air* 0 21 Physical Exam Head eyes ears nose and throat exam has not altered conjunctiva is pink neck was supple no JVD no lymphadenopathy no carotid bruits lungs clear to auscultation heart was regular rate and rhythm abdomen is soft nontender with no pulsatile abdominal mass or bruits lower extremities 1+ edema bilaterally. He had a small varicose vein which is scabbed over no active bleeding in the calf. He does have larger varicose veins measuring approximately 5 mm or greater in size in the calves bilaterally. Pulse exam palpable pedal pulses bilaterally Neurologically no motor sensory deficits. Labs/Diagnostic Data Labs Test 08/30/24 07:12 08/29/24 05:29 08/27/24 22:35 08/27/24 21:47 Range/Units White Blood Count 3.3 L 4.4-10.8 10^3/uL Red Blood Count 8.04 H 4.5-5.90 10^6/uL Hemoglobin 16.5 13.5-17.5 g/dL Hematocrit 54.5 H 41.0-53.0 % Mean Corpuscular Volume 67.7 L 80.0-100.0 fL Mean Corpuscular Hemoglobin 20.5 L 28.0-32.0 pg Mean Corpuscular Hemoglobin Concent 30.2 L 32.0-36.0 g/dL Red Cell Distribution Width 24.9 H 11.8-14.3 % Platelet Count 120 L 140-450 10^3/uL Mean Platelet Volume 9.7 6.9-10.8 fL Neutrophils (%) (Auto) 46.4 37.0-80.0 % Lymphocytes (%) (Auto) 33.7 10.0-50.0 % Monocytes (%) (Auto) 15.6 H 0.0-12.0 % Eosinophils (%) (Auto) 3.8 0.0-7.0 % Basophils (%) (Auto) 0.5 0.0-2.0 % Neutrophils # (Auto) 1.5 L 1.6-8.6 10 ^3/uL Lymphocytes # (Auto) 1.1 0.4-5.4 10 ^3/uL Monocytes # (Auto) 0.5 0-1.3 10 ^3/uL Eosinophils # (Auto) 0.1 0-0.8 10 ^3/uL Basophils # (Auto) 0 0-0.2 10 ^3/uL Nucleated Red Blood Cells 1.1 % Platelet Estimate F Large Platelets Few Hypochromasia (manual) Marked Anisocytosis (manual) Moderate Microcytosis Marked Prothrombin Time 14.0 H 9.3-11.8 sec Prothrombin Time INR 1.35 H 0.9-1.15 Activated Partial Thromboplast Time 31.8 24.5-34.5 SEC Sodium Level 140 136-145 mmol/L Potassium Level 4.1 3.5-5.1 mmol/L Chloride Level 104 98-107 mmol/L Carbon Dioxide Level 29 20-31 mmol/L Anion Gap 7 5-15 Blood Urea Nitrogen 14 9-23 mg/dL Creatinine 0.96 0.700-1.30 mg/dL Glomerular Filtration Rate Calc 100 >90 mL/min BUN/Creatinine Ratio 14.6 10.0-20.0 Serum Glucose 78 74-106 mg/dL Calcium Level 9.4 8.7-10.4 mg/dL Target Cells Few Total Bilirubin 4.1 H 0.2-1.0 mg/dL Aspartate Amino Transferase (AST) 18 13-40 U/L Alanine Aminotransferase (ALT) 14 7-40 U/L Alkaline Phosphatase 70 46-116 U/L Total Protein 7.3 5.7-8.2 g/dL Albumin 3.6 3.2-4.8 g/dL Troponin I High Sensitivity 4 </=54 ng/L Giant Platelets Few D-Dimer, Quantitative 0.51 H 0.0-0.49 mg/L FEU B-Type Natriuretic Peptide 32.46 0-100 pg/mL Assessment Right leg varicose vein bleed not active currently. Recommend outpatient evaluation for chronic venous insufficiency including ultrasound was venous reflux study. Recommend compression stocking therapy We will follow up as an outpatient. Plan/Recommendation Right leg varicose vein bleed not active currently. Recommend outpatient evaluation for chronic venous insufficiency including ultrasound was venous reflux study. Recommend compression stocking therapy We will follow up as an outpatient. Plan discussed with: Patient HARI CUMMINGS Jr., MD Aug 30, 2024 09:15
--- NOTE | 2024-08-30 13:47 | DVHDS2 ---
Discharge Summary Date of Admission Aug 28, 2024 at 11:59 Date of Discharge: Aug 30, 2024 Admitting Diagnosis Bleeding varicose vein Labs/Diagnostic Data: Laboratory Results Test 08/30/24 07:12 08/29/24 05:29 08/27/24 22:35 08/27/24 21:47 White Blood Count 3.3 10^3/uL (4.4-10.8) Red Blood Count 8.04 10^6/uL (4.5-5.90) Hemoglobin 16.5 g/dL (13.5-17.5) Hematocrit 54.5 % (41.0-53.0) Mean Corpuscular Volume 67.7 fL (80.0-100.0) Mean Corpuscular Hemoglobin 20.5 pg (28.0-32.0) Mean Corpuscular Hemoglobin Concent 30.2 g/dL (32.0-36.0) Red Cell Distribution Width 24.9 % (11.8-14.3) Platelet Count 120 10^3/uL (140-450) Mean Platelet Volume 9.7 fL (6.9-10.8) Neutrophils (%) (Auto) 46.4 % (37.0-80.0) Lymphocytes (%) (Auto) 33.7 % (10.0-50.0) Monocytes (%) (Auto) 15.6 % (0.0-12.0) Eosinophils (%) (Auto) 3.8 % (0.0-7.0) Basophils (%) (Auto) 0.5 % (0.0-2.0) Neutrophils # (Auto) 1.5 10 ^3/uL (1.6-8.6) Lymphocytes # (Auto) 1.1 10 ^3/uL (0.4-5.4) Monocytes # (Auto) 0.5 10 ^3/uL (0-1.3) Eosinophils # (Auto) 0.1 10 ^3/uL (0-0.8) Basophils # (Auto) 0 10 ^3/uL (0-0.2) Nucleated Red Blood Cells 1.1 % Platelet Estimate F Large Platelets Few Hypochromasia (manual) Marked Anisocytosis (manual) Moderate Microcytosis Marked Prothrombin Time 14.0 sec (9.3-11.8) Prothrombin Time INR 1.35 (0.9-1.15) Activated Partial Thromboplast Time 31.8 SEC (24.5-34.5) Sodium Level 140 mmol/L (136-145) Potassium Level 4.1 mmol/L (3.5-5.1) Chloride Level 104 mmol/L (98-107) Carbon Dioxide Level 29 mmol/L (20-31) Anion Gap 7 (5-15) Blood Urea Nitrogen 14 mg/dL (9-23) Creatinine 0.96 mg/dL (0.700-1.30) Glomerular Filtration Rate Calc 100 mL/min (>90) BUN/Creatinine Ratio 14.6 (10.0-20.0) Serum Glucose 78 mg/dL (74-106) Calcium Level 9.4 mg/dL (8.7-10.4) Target Cells Few Total Bilirubin 4.1 mg/dL (0.2-1.0) Aspartate Amino Transferase (AST) 18 U/L (13-40) Alanine Aminotransferase (ALT) 14 U/L (7-40) Alkaline Phosphatase 70 U/L (46-116) Total Protein 7.3 g/dL (5.7-8.2) Albumin 3.6 g/dL (3.2-4.8) Troponin I High Sensitivity 4 ng/L (</=54) Giant Platelets Few D-Dimer, Quantitative 0.51 mg/L FEU (0.0-0.49) B-Type Natriuretic Peptide 32.46 pg/mL (0-100) Other Laboratory Tests 08/30/24 07:12 Brief Hx & Hospital Course: History of Present Illness The patient is a 43-year-old male with multiple past medical history including PE stop taking Coumadin due to frequent varicose vein bleed, liver disease, hypertension, and CHF who presented to [facility] ED with complaint of bleeding of varicose vein. Patient reports symptoms progressively get worse with weakness, shortness of breaths, getting worse that prompted this visit. Patient was seen and evaluated in the ED, laboratory data shows WBC 4.6, platelets 145, sodium 139, potassium 4.4, BUN 15, creatinine 1.14, glucose 89, troponin 3, BNP 32.46, D-dimer 0.51. Chest x-ray revealing patchy consolidations in both lower lungs, mild cardiomegaly. Please see medication orders section in the computer. On my assessment, patient denied chest pain, no headache, no dizziness, no shortness of breath, no nausea, no vomiting, no fever, no chills. Patient was admitted for further evaluation and medical management. Course of hospitalization: Patient had tourniquet dressing placed over bleeding varicose vein. Anticoagulation was stopped. Patient was also noted to have severe swelling to his bilateral lower extremities as well as having worsening acute on chronic hypoxic respiratory failure with patient requiring 6 L of O2 via simple mask. Discussion made with the patient reveals that he has a history of O2 use, usually uses 2-3 liters/minute. Past ejection fraction noted on echocardiogram was 25% on previous admission. Patient states that he has been compliant with his heart failure medications, and does not recall eating any salty foods or taking any extra fluid prior to admission. Patient was given increased IV diuresis with his lower extremity swelling improving. Discussion was made with the patient that if he was having persistent episodes of bleeding from his varicose vein he should have possible evaluation/intervention performed to the [facility] system. Consultation was obtained with vascular surgeon. Recommendations reviewed. Patient has been cleared for discharge since he has no signs of bleeding at this time. The patient will be discharged today and instructed to follow up with his PCP within 1-2 weeks. He is instructed to continue all previous home medications. With respect to Coumadin, he was instructed to take the Coumadin since he was on it for previous PE, but the patient states that he has stopped Coumadin several months ago because his varicose vein was bleeding at that time. He was to continue current O2 supplementation at the time of discharge of 2-3 liters/minute. All questions answered. Total time spent with patient discussing and formulating plan of care: 35 minutes. This medical document was created using an electronic medical record system with [employer] dictation system. Although this document has been carefully reviewed, there may still be some phonetic and typographical errors. These areas are purely typographical due to imperfections of the software programs, and do not reflect any compromise in the patient's medical care. 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 Possible bacteria PNA. Ruled out Discharge Disposition: Home Discharge Instruct/Medications Diet: Cardiac 2g Na,low cholest Activity: No Restrictions, As Tolerated Follow Up/Referral: Follow up with PCP in 1-2 weeks Obtain referral for vascular surgeon to assess treatment for varicose veins Medications: Continue all previous home medications. Patient states that he does take 36 Discharge Statement: "Patient was advised to return to the ER or call 911 if any headaches, dizziness, shortness of breath, chest pain, abdominal pain, bleeding, fevers, or worsening of medical condition. Patient was counseled about treatment plan, medications, possible side effects, patientverbalized understanding. All questions were answered to the best of my ability. This discharge took greater then 30 minutes in planning, reviewing documentation, counseling the patient, and discussing with other team members." ASSESSMENT ASSESSMENT Assessment Bleeding Varicose Vein Date of Service: Aug 30, 2024 Billing Provider: STEVE COLON NP Common Visit Codes: 53163-ESL/OBS DISCH DAY >30min STEVE COLON NP Aug 30, 2024 13:47
== END 2024-08-30 15:30 | disposition home or self-care (01) | DRG 197 ==
LOC: ER 21:08 → TELE 08-28 11:59 → TELE-WESTW 08-28 22:43
PROVIDERS: ADMIT Nurse Practitioner Family; ATTEND Nurse Practitioner Acute Care
DX: I83.891 Varicose veins of right lower extremity with other complications (principal); J96.21 Acute and chronic respiratory failure with hypoxia; I21.A1 Myocardial infarction type 2; I50.23 Acute on chronic systolic (congestive) heart failure; I11.0 Hypertensive heart disease with heart failure; Z91.199 Patient's noncompliance with other medical treatment and regimen due to unspecified reason; Z79.891 Long term (current) use of opiate analgesic; Z79.899 Other long term (current) drug therapy; Z82.61 Family history of arthritis; Z82.5 Family history of asthma and other chronic lower respiratory diseases; Z83.3 Family history of diabetes mellitus; Z91.018 Allergy to other foods
CPT/HCPCS: 36415; 71275; 80048; 80053; 83880; 84484; 85025; 85379; 85610; 85730; 94640; 96365; 96367; 99291; G0378